=== PATIENT | female | born 1940 ===

== ENCOUNTER 2023-07-15 11:45 | Inpatient (IN) | payer MEDICARE, OTHER, SELFPAY ==
[2023-07-15] VITALS (30 sets, daily range): BP systolic 115–191; BP diastolic 46–81; PULSE 72–95; RESP 18–22; TEMP 36.8–37.6; O2SAT 92–100; BMI 26.6; BMI 27.4
--- NOTE | 2023-07-15 12:41 | CRLHL7_ITS ---
For Patients: As a result of the Century Cures Act, medical imaging exams and procedure reports are released immediately into your electronic medical record. You may view this report before your referring provider. If you have questions, please contact your health care provider. Indication: Diffuse acute abdominal Pain Technique: Volumetric multidetector CT images of the abdomen and pelvis were obtained after the administration of intravenous contrast. 61 cc Isovue 370 low osmolar intravenous contrast Comparison: None available. Findings: There is basilar atelectasis and parenchymal scar. The liver is normal in attenuation without intrahepatic biliary ductal dilatation. The portal vein is patent. There is prior cholecystectomy. There is no significant common biliary ductal dilatation or abrupt cut off. The spleen is normal in enhancement and size. There is mild thickening of the gastric antrum and gastric rugal folds with mild prominence of the mucosa. The pancreas is normal in enhancement without significant atrophy. The adrenal glands are unremarkable. The kidneys demonstrate preserved corticomedullary differentiation without evidence of obstructive uropathy. There is colonic diverticulosis with focal inflammatory change of the ascending colon consistent with likely low-grade diverticulitis changes. Additional questionable inflammation of sigmoid colon is appreciated. Otherwise the small bowel is predominantly decompressed with minimal fluid-filled distal loops. The appendix is unremarkable. There is no significant mesenteric, retroperitoneal, or pelvic sidewall lymph nodes. The aorta is not aneurysmal with scattered atherosclerotic calcifications. Cystic changes of the bilateral ovaries are appreciated. There is trace fluid seen within the dependent central pelvis. The anterior abdominal wall is intact without significant hernias. The lumbar vertebral body heights are grossly maintained with minimal endplate Schmorl`s defects. There is minimal anterolisthesis of L4 on L5. There is mild facet arthrosis. Impression: Colonic diverticulosis of the ascending and descending colon with focal inflammatory change of the ascending colon consistent with diverticulitis. Additional focal thickening and inflammatory changes of the sigmoid colon are appreciated which may represent additional site of infectious or inflammatory change. Minimal fluid is seen tracking into the pelvis and pericolic gutters. Please note that all CT scans at this facility use dose modulation, iterative reconstruction, and/or weight-based dosing when appropriate to reduce radiation dose to as low as reasonably achievable. Dictated by Kehinde Bush MD @ 07/15/2023 3:02:54 PM (Electronically Signed)
--- NOTE | 2023-07-15 12:41 | CRLHL7_ITS ---
For Patients: As a result of the Century Cures Act, medical imaging exams and procedure reports are released immediately into your electronic medical record. You may view this report before your referring provider. If you have questions, please contact your health care provider. INDICATION: Altered mental status TECHNIQUE: Noncontrast axial CT of the head. Coronal and sagittal reformats. Bone and soft tissue algorithms. COMPARISON: No relevant comparison studies available at this institution. FINDINGS: Postsurgical changes of remote right parietal craniotomy with subjacent right frontal encephalomalacia. Mild prominence of the ventricles and cortical sulci, compatible with generalized cerebral volume loss. No acute intracranial hemorrhage or abnormal extra-axial fluid collection. No midline shift, hydrocephalus, or herniation. Preserved quick-white matter differentiation. Mild expanded, partially empty-appearing sella configuration. Calcific intracranial atherosclerotic plaquing. Clear visualized paranasal sinuses. Left canal wall down mastoidectomy changes. Bilateral lens implants. IMPRESSION: 1. No CT evidence of acute intracranial abnormality. 2. Remote postsurgical changes of right parietal craniotomy with subjacent right frontal encephalomalacia. 3. Mild generalized cerebral volume loss. Left canal wall down mastoidectomy changes. Please note that all CT scans at this facility use dose modulation, iterative reconstruction, and/or weight-based dosing when appropriate to reduce radiation dose to as low as reasonably achievable. Dictated by Lexus Mathis MD @ 07/15/2023 2:33:45 PM (Electronically Signed)
[2023-07-15 13:21] LABS: HCO3 VBG 21 mmol/L (21-28); Lactate* 2.1 mmol/L (0.5-1.9); PCO2 VBG 30 mmHG (40-50); PO2 VBG 50.3 mmHG (25-47); pH VBG 7.445 (7.32-7.43)
[2023-07-15 13:22] LABS: Basophils Percent Auto 0.1 % (0.0-3.0); Eosinophils Percent Auto 0.2 % (0.0-7.0); Hematocrit 35.3 % (33.0-51.0); Hemoglobin* 11.4 gm/dL (12.0-16.0); Immature Granulocytes Pct Auto 0.6 %; Lymphocytes Percent Auto 10.7 % (20-44); Mean Corpuscular HGB Conc 32 gm/dL (32-36); Mean Corpuscular Hemoglobin 30 pg (26-34); Mean Corpuscular Volume 92 fL (80-100); Monocytes Percent Auto 5.4 % (0.0-11.0); Platelet Count* 214 K/uL (140-440); RDW Coefficient of Variation % 12.7 % (11.5-15.5); Red Blood Count 3.83 m/uL (4.00-5.20); White Blood Count* 11.48 K/uL (4.50-11.00)
[2023-07-15 13:26] LABS: Slide Review Reflex No
[2023-07-15 13:28] LABS: Troponin, Point-of-Care* 0.05 ng/ml (0.01-0.04)
[2023-07-15] MEDS: 0.9 % SODIUM CHLORIDE 500 ML 500 ML IV (13:35)
--- NOTE | 2023-07-15 13:40 | ED.GENADULT ---
HPI - General Adult General Chief complaint: Nausea/Vomiting Stated complaint: recent heart attack, vomiting, shivering Time Seen by Provider: 07/15/23 11:55 History of Present Illness HPI narrative: 82-year-old female presenting to the ER today with acute episode of vomiting and diarrhea. Patient had an appointment this morning with her registered sales assistant and per her daughter everything went very well at the appointment and patient was doing fine. Then on the way home she began feeling not well and vomited and had uncontrollable diarrhea. When the time patient arrived to our ER she had continuing episodes of vomiting and diarrhea. This all started 20 minutes prior to presentation. Now she is very weak and patient's daughter is quite concerned that she is not acting like herself. Patient was also shivering uncontrollably in the car. This has stopped. Past medical history significant for coronary artery disease status post stenting x2, hypertension. Current medications: Lisinopril, metoprolol, atorvastatin Related Data Allergies Allergy/AdvReac Type Severity Reaction Status Date / Time No Known Drug Allergies Allergy Verified 07/15/23 14:19 Review of Systems Status of ROS: Reports: 10 or more systems reviewed and unremarkable except as noted in History and below [facility] Social History Smoking Status: Never smoker Do you use any of these nicotine containing products: None How often do you have a drink containing alcohol: never How often do you have six or more drinks on one occasion: Never AUDIT-C Alcohol total score: 0 Non-prescribed substance use: denies use service: No Exam Narrative: Exam Narrative: Well-nourished well-developed patient in no acute distress. Patient is lying quietly in bed with her eyes closed. When I ask her to open them she does follow commands. She mainly nods or shakes her head in response to questions while keeping her eyes closed. She moans throughout most of the exam a and tells me that her all of her bones hurt. HEENT: Normocephalic atraumatic. Pupils are equally round reactive to light. Extraocular muscles are intact. Conjunctivae are moist without any icterus noted. Moist mucous membranes. Posterior pharynx is normal. Neck is soft without any lymphadenopathy or thyromegaly. No masses are appreciated. Cardiovascular: Heart is regular rate and rhythm S1 and S2 are present without any murmurs. Lungs: Clear to auscultation bilaterally no wheezes rhonchi or rales are appreciated. Patient takes deep breaths without any discomfort. Abdomen: Soft and nondistended. Patient groans in discomfort with light palpation over the entire abdomen. She does have hypoactive bowel sounds. Extremities: Bilateral lower extremities show trace edema bilaterally. Normal DP and PT pulses. Patient also groans in pain with light touch to all of the extremities. Skin: Well perfused without any obvious rashes. Patient lifts legs and upper extremities off of the bed when asked to but cannot sustain any strength in any extremity against force. Reflexes are 2+ symmetric at the knee. She has no nystagmus either horizontally or vertically. Const: Vital Signs, click to edit/add: Vital Signs - 24 hr 07/15/23 12:23 07/15/23 12:41 07/15/23 13:24 Pulse Rate 89 Pulse Rate [Pulse Oximeter] 92 Respiratory Rate 22 Blood Pressure Blood Pressure [Ri ght Upper Arm] 191/81 H Pulse Oximetry 92 92 92 Oxygen Delivery Me thod Room Air 07/15/23 13:30 07/15/23 13:32 07/15/23 13:45 Pulse Rate 86 86 86 Pulse Rate [Pulse Oximeter] Respiratory Rate Blood Pressure 136/57 L Blood Pressure [Ri ght Upper Arm] Pulse Oximetry 94 92 92 Oxygen Delivery Me thod 07/15/23 14:09 07/15/23 14:15 07/15/23 14:30 Pulse Rate 85 85 83 Pulse Rate [Pulse Oximeter] Respiratory Rate Blood Pressure Blood Pressure [Ri ght Upper Arm] Pulse Oximetry 99 97 Oxygen Delivery Me thod 07/15/23 14:31 07/15/23 14:32 07/15/23 14:45 Pulse Rate 84 83 84 Pulse Rate [Pulse Oximeter] Respiratory Rate Blood Pressure 137/52 L Blood Pressure [Ri ght Upper Arm] Pulse Oximetry 99 98 98 Oxygen Delivery Me thod 07/15/23 15:00 07/15/23 15:05 07/15/23 15:15 Pulse Rate 84 83 85 Pulse Rate [Pulse Oximeter] Respiratory Rate Blood Pressure Blood Pressure [Ri ght Upper Arm] Pulse Oximetry 100 100 99 Oxygen Delivery Me thod 07/15/23 15:30 07/15/23 15:34 07/15/23 15:45 Pulse Rate 87 84 85 Pulse Rate [Pulse Oximeter] Respiratory Rate Blood Pressure Blood Pressure [Ri ght Upper Arm] Pulse Oximetry 93 95 94 Oxygen Delivery Me thod 07/15/23 16:00 07/15/23 16:05 Pulse Rate 95 93 Pulse Rate [Pulse Oximeter] Respiratory Rate Blood Pressure Blood Pressure [Ri ght Upper Arm] Pulse Oximetry 93 95 Oxygen Delivery Me thod Course Course ED Course: Per the patient's daughter this is not her baseline behavior. She is generally up, awake and independent. IV was established and we did start 500 mL of normal saline. Labs were drawn. CRP, lactate and WBC all just above normal. Given her acute change in mentation we did do a head CT which was unremarkable for any acute changes. Given her abdominal discomfort we did proceed with an abdominal CT scan which did show evidence of diverticulitis. After fluids and resting for a couple of hours patient felt significantly better perked right up. She was back to her normal self. She was sitting in bed but having conversations, was awake and alert. At this time we did repeat an EKG which shows some mild changes in leads 2 3 and AVF and a repeat troponin unfortunately went up significantly to 0.1. At this time I did call Dr. Valero, registered sales assistant at [facility] who saw the patient this morning. He felt that the EKG changes between the 1st and 2nd EKGs were not significant. He recommended admission with observation of and trending of the troponins. We discussed treating for acute coronary syndrome with heparin but given that she is completely asymptomatic, we decided against it at this time. Vital Signs Vital signs: Initial Vital Signs Temperature Source Temporal Artery Scan 07/15/23 12:23 Pulse Rate 92 07/15/23 12:23 Pulse Rhythm Regular 07/15/23 12:23 Respiratory Rate 22 07/15/23 12:23 Blood Pressure 191/81 H 07/15/23 12:23 Blood Pressure Mean 117 H 07/15/23 12:23 Blood Pressure Position Supine 07/15/23 12:23 Pulse Oximetry 92 07/15/23 12:23 Oxygen Delivery Method Room Air 07/15/23 12:23 Vital Signs Pulse Rate 92 07/15/23 12:23 Respiratory Rate 22 07/15/23 12:23 Blood Pressure 191/81 H 07/15/23 12:23 Pulse Oximetry 92 07/15/23 12:23 Oxygen Delivery Method Room Air 07/15/23 12:23 Pulse Rate 93 07/15/23 16:05 Respiratory Rate 22 07/15/23 12:23 Blood Pressure 137/52 L 07/15/23 14:31 Pulse Oximetry 95 07/15/23 16:05 Oxygen Delivery Method Room Air 07/15/23 12:23 Medical Decision Making MDM Narrative Medical decision making narrative: 82-year-old female with diverticulitis and elevated troponin. Given her comorbidities and age I do think that antibiotic treatment would be appropriate for her. At this time she will be admitted for further management. P Medical Records Medical records reviewed: Yes I reviewed the patient's medical records Lab Data Lab results reviewed: Yes I reviewed the patient's lab results Labs: Lab Results 07/15/23 07/15/23 07/15/23 Range/Units 12:42 13:10 13:45 WBC 11.48 H (4.50-11.00) K/uL RBC 3.83 L (4.00-5.20) m/uL Hgb 11.4 L (12.0-16.0) gm/dL Hct 35.3 (33.0-51.0) % MCV 92 (80-100) fL MCH 30 (26-34) pg MCHC 32 (32-36) gm/dL RDW Coeff of [place]ckin[place] 12.7 (11.5-15.5) % Plt Count 214 (140-440) K/uL Neut % (Auto) 83.0 H (42.0-72.0) % Lymph % (Auto) 10.7 L (20-44) % [place] % (Auto) 5.4 (0.0-11.0) % Eos % (Auto) 0.2 (0.0-7.0) % Baso % (Auto) 0.1 (0.0-3.0) % Neut # (Auto) 9.50 H (1.7-7.0) K/uL Lymph # (Auto) 1.20 (0.90-2.90) K/uL [place] # (Auto) 0.60 (0.00-0.90) K/UL Eos # (Auto) 0.00 (0.00-0.50) K/uL Baso # (Auto) 0.00 (0.00-0.30) K/uL Abs Immat Gran (auto) 0.10 (0.00-0.30) K/uL Imm/Tot Granulo (auto) 0.6 % VBG pH 7.445 H (7.32-7.43) VBG pCO2 30 L (40-50) mmHG VBG pO2 50.3 H (25-47) mmHG VBG HCO3 21 (21-28) mmol/L Sodium 140 (135-149) mmol/L Potassium 3.7 (3.6-5.1) mmol/L Chloride 105 (96-114) mmol/L Carbon Dioxide 18 L (20-32) mmol/L Anion Gap 17 H (7-15) mEq/L BUN 17 (7-30) mg/dL Creatinine 1.1 (0.5-1.5) mg/dL Estimated Creat Clear 34.13 Estimated GFR 50 ml/min Glucose 87 (60-115) mg/dL Lactate 2.1 H (0.5-1.9) mmol/L Calcium 9.1 (8.4-10.6) mg/dL Total Bilirubin 0.7 (0.1-1.5) mg/dL Direct Bilirubin 0.1 (0.0-0.5) mg/dL AST 40 H (12-35) U/L ALT 17 (4-35) U/L Alkaline Phosphatase 106 (40-150) U/L Troponin I 0.02 (0.01-0.04) ng/mL C-Reactive Protein 0.9 (0.5-1.0) mg/dL NT-Pro-B Natriuret Pep 1030 pg/mL Total Protein 6.5 (6.0-8.3) g/dL Albumin 3.9 (3.3-5.0) g/dL Lipase (23-300) U/L Urine Color (Yellow) Urine Appearance (Clear) Urine pH (5.0-8.5) Ur Specific [place] (1.000-1.030) Urine Protein (Negative) Urine Glucose (UA) (Negative) Urine Ketones (Negative) Urine Blood (Negative) Urine Nitrite (Negative) Urine Bilirubin (Negative) Urine Urobilinogen (0.2-1.0) Ur Leukocyte Esterase (Negative) Acetaminophen < 10.0 L (10.0-30.0) ug/mL Ethyl Alcohol < 0.01 L (0.01-0.03) % SARS-CoV-2 (PCR) Negative SARS-CoV-2 (Negative) Influenza Type A (PCR) Negative PCR FLU A (Negative) Influenza Type B (PCR) Negative PCR FLU B (Negative) POC Troponin I 0.05 H (0.01-0.04) ng/ml 07/15/23 07/15/23 Range/Units 14:57 Unknown WBC (4.50-11.00) K/uL RBC (4.00-5.20) m/uL Hgb (12.0-16.0) gm/dL Hct (33.0-51.0) % MCV (80-100) fL MCH (26-34) pg MCHC (32-36) gm/dL RDW Coeff of Mckin[place] (11.5-15.5) % Plt Count (140-440) K/uL Neut % (Auto) (42.0-72.0) % Lymph % (Auto) (20-44) % [place] % (Auto) (0.0-11.0) % Eos % (Auto) (0.0-7.0) % Baso % (Auto) (0.0-3.0) % Neut # (Auto) (1.7-7.0) K/uL Lymph # (Auto) (0.90-2.90) K/uL [place] # (Auto) (0.00-0.90) K/UL Eos # (Auto) (0.00-0.50) K/uL Baso # (Auto) (0.00-0.30) K/uL Abs Immat Gran (auto) (0.00-0.30) K/uL Imm/Tot Granulo (auto) % VBG pH (7.32-7.43) VBG pCO2 (40-50) mmHG VBG pO2 (25-47) mmHG VBG HCO3 (21-28) mmol/L Sodium (135-149) mmol/L Potassium (3.6-5.1) mmol/L Chloride (96-114) mmol/L Carbon Dioxide (20-32) mmol/L Anion Gap (7-15) mEq/L BUN (7-30) mg/dL Creatinine (0.5-1.5) mg/dL Estimated Creat Clear Estimated GFR ml/min Glucose (60-115) mg/dL Lactate (0.5-1.9) mmol/L Calcium (8.4-10.6) mg/dL Total Bilirubin (0.1-1.5) mg/dL Direct Bilirubin (0.0-0.5) mg/dL AST (12-35) U/L ALT (4-35) U/L Alkaline Phosphatase (40-150) U/L Troponin I 0.10 H* (0.01-0.04) ng/mL C-Reactive Protein (0.5-1.0) mg/dL NT-Pro-B Natriuret Pep pg/mL Total Protein (6.0-8.3) g/dL Albumin (3.3-5.0) g/dL Lipase 172 (23-300) U/L Urine Color Yellow (Yellow) Urine Appearance Clear (Clear) Urine pH 5.0 (5.0-8.5) Ur Specific [place] 1.015 (1.000-1.030) Urine Protein 1+ A (Negative) Urine Glucose (UA) Negative (Negative) Urine Ketones Negative (Negative) Urine Blood 2+ A (Negative) Urine Nitrite Positive A (Negative) Urine Bilirubin Negative (Negative) Urine Urobilinogen 0.2 (0.2-1.0) Ur Leukocyte Esterase 1+ A (Negative) Acetaminophen (10.0-30.0) ug/mL Ethyl Alcohol (0.01-0.03) % SARS-CoV-2 (PCR) (Negative) Influenza Type A (PCR) (Negative) Influenza Type B (PCR) (Negative) POC Troponin I (0.01-0.04) ng/ml Imaging Data CT scan - head: Attestation: I have reviewed the pertinent imaging results. Radiologist's impression: TECHNIQUE: Noncontrast axial CT of the head. Coronal and sagittal reformats. Bone and soft tissue algorithms. COMPARISON: No relevant comparison studies available at this institution. FINDINGS: Postsurgical changes of remote right parietal craniotomy with subjacent right frontal encephalomalacia. Mild prominence of the ventricles and cortical sulci, compatible with generalized cerebral volume loss. No acute intracranial hemorrhage or abnormal extra-axial fluid collection. No midline shift, hydrocephalus, or herniation. Preserved quick-white matter differentiation. Mild expanded, partially empty-appearing sella configuration. Calcific intracranial atherosclerotic plaquing. Clear visualized paranasal sinuses. Left canal wall down mastoidectomy changes. Bilateral lens implants. IMPRESSION: 1. No CT evidence of acute intracranial abnormality. 2. Remote postsurgical changes of right parietal craniotomy with subjacent right frontal encephalomalacia. 3. Mild generalized cerebral volume loss. Left canal wall down mastoidectomy changes. CT scan - abdomen: Attestation: I have reviewed the pertinent imaging results. Radiologist's impression: Technique: Volumetric multidetector CT images of the abdomen and pelvis were obtained after the administration of intravenous contrast. 61 cc Isovue 370 low osmolar intravenous contrast Comparison: None available. Findings: There is basilar atelectasis and parenchymal scar. The liver is normal in attenuation without intrahepatic biliary ductal dilatation. The portal vein is patent. There is prior cholecystectomy. There is no significant common biliary ductal dilatation or abrupt cut off. The spleen is normal in enhancement and size. There is mild thickening of the gastric antrum and gastric rugal folds with mild prominence of the mucosa. The pancreas is normal in enhancement without significant atrophy. The adrenal glands are unremarkable. The kidneys demonstrate preserved corticomedullary differentiation without evidence of obstructive uropathy. There is colonic diverticulosis with focal inflammatory change of the ascending colon consistent with likely low-grade diverticulitis changes. Additional questionable inflammation of sigmoid colon is appreciated. Otherwise the small bowel is predominantly decompressed with minimal fluid-filled distal loops. The appendix is unremarkable. There is no significant mesenteric, retroperitoneal, or pelvic sidewall lymph nodes. The aorta is not aneurysmal with scattered atherosclerotic calcifications. Cystic changes of the bilateral ovaries are appreciated. There is trace fluid seen within the dependent central pelvis. The anterior abdominal wall is intact without significant hernias. The lumbar vertebral body heights are grossly maintained with minimal endplate Schmorl`s defects. There is minimal anterolisthesis of L4 on L5. There is mild facet arthrosis. Impression: Colonic diverticulosis of the ascending and descending colon with focal inflammatory change of the ascending colon consistent with diverticulitis. Additional focal thickening and inflammatory changes of the sigmoid colon are appreciated which may represent additional site of infectious or inflammatory change. Minimal fluid is seen tracking into the pelvis and pericolic gutters. ECG Data Attestation: I personally reviewed and interpreted this ECG as follows: Discharge Plan Discharge Clinical Impression: Diverticulitis, Elevated troponin Patient Disposition: Admitted As Observation Condition: Stable Additional Instructions: Take all antibiotics as prescribed. May want to try just a liquid diet for the remainder of the day to help with reduce chance of vomiting and worsening pain. Can slowly advance diet as tolerated. Return to the ER symptoms are getting worse over the next 2-3 days instead of better. Follow-up with primary care provider in 10-14 days. Medications sent to [facility]. Follow Up/Referrals: Renetta Dunn MD [Primary Care Provider] - Stand Alone Forms: [facility] Info Instructions
[2023-07-15 13:42] LABS: Chloride* 105 mmol/L (96-114); Potassium* 3.7 mmol/L (3.6-5.1); Sodium* 140 mmol/L (135-149)
[2023-07-15 13:43] LABS: Albumin* 3.9 g/dL (3.3-5.0)
[2023-07-15 13:44] LABS: Creatinine* 1.1 mg/dL (0.5-1.5); Est. Creatinine Clearance* 34.13; Estimated Glomerular Filt Rate 50 ml/min
[2023-07-15 13:45] LABS: Anion Gap 17 mEq/L (7-15); Blood Urea Nitrogen* 17 mg/dL (7-30); Carbon Dioxide* 18 mmol/L (20-32); Glucose* 87 mg/dL (60-115)
[2023-07-15 13:46] LABS: Alanine Aminotransferase* 17 U/L (4-35); Alkaline Phosphatase* 106 U/L (40-150); Aspartate Amino Transferase* 40 U/L (12-35); Bilirubin Direct* 0.1 mg/dL (0.0-0.5); Bilirubin Total* 0.7 mg/dL (0.1-1.5); Calcium* 9.1 mg/dL (8.4-10.6); Total Protein* 6.5 g/dL (6.0-8.3)
[2023-07-15 13:48] LABS: C Reactive Protein* 0.9 mg/dL (0.5-1.0)
[2023-07-15 13:57] LABS: Troponin I* 0.02 ng/mL (0.01-0.04)
[2023-07-15 14:02] LABS: Acetaminophen* < 10.0 ug/mL (10.0-30.0); Ethanol* < 0.01 % (0.01-0.03); NT Pro B Type NatriureticPept* 1030 pg/mL
[2023-07-15 14:41] LABS: PCR FLU A Negative PCR FLU A (Negative); PCR FLU B Negative PCR FLU B (Negative)
[2023-07-15 14:54] LABS: SARS PCR* Negative SARS-CoV-2 (Negative)
[2023-07-15 15:19] LABS: Lipase* 172 U/L (23-300)
[2023-07-15 15:40] LABS: Appearance Urine Clear (Clear); Bilirubin Urine Negative (Negative); Blood Urine 2+ (Negative); Color Urine Yellow (Yellow); Glucose Urine Negative (Negative); Ketones Urine Negative (Negative); Leukocyte Esterase Urine 1+ (Negative); Nitrite Urine Positive (Negative); Protein Urine 1+ (Negative); Specific Gravity Urine 1.015 (1.000-1.030); Urobilinogen Urine 0.2 (0.2-1.0)
--- NOTE | 2023-07-15 15:43 | ED.NURSE ---
critical troponin of .10, MD notified.
--- NOTE | 2023-07-15 16:36 | ED.NURSE ---
report given off to kade ALCANTAR.
[2023-07-15 16:48] LABS: Bacteria Urine Few; Squamous Epithelial Cell Urine Few (None-Few)
[2023-07-15] MEDS: PIPERACILLIN/TAZOBACTAM 3.375 GM in 0.9 % SODIUM CHLORIDE Mini-bag 100 ML IVPB ×2 (18:28→23:32)
--- NOTE | 2023-07-15 18:31 | P.IMHP_ITS ---
Hospitalist- H&P: HPI History of Present Illness Date Seen: 07/15/23 Chief complaint: recent heart attack, vomiting, shivering Narrative: Liliana Parker is a 82 year old female who presented to the emergency room this afternoon with her daughter for acute onset of nausea, vomiting, and diarrhea. She was seen by her labeling associate for routine follow-up this morning (s/p recent NSTEMI with stent placement 06/05) with reassuring labs and EKG findings. On the way home from the appointment, she noted abdominal distress with diarrhea and some vomiting. These symptoms improved upon arrival to the ED, but then felt weak and was shivering upon ED arrival. ED Course and Findings: - diverticulitis on CT scan, received IV fluids for GI symptoms with relief - + UA, culture pending - stable on room air - no acute findings on head CT, chronic changes noted - initial troponin negative, 2nd troponin 0.10 - EKG revealed concern for a left bundle branch block - patient did not have chest pain or dyspnea. Dr. Pinzon in the emergency room discussed case with [facility], who recommended serial troponins, telemetry monitoring, TTE Upon arrival to the floor, patient is feeling better. Still has mild abdominal discomfort but no other concerns. Past medical history updated below. Daughter Dana present for H&P. Review of Systems Status of ROS: Reports: 10 or more systems reviewed and unremarkable except as noted in History and below [facility] Medical History (Updated 07/15/23 @ 20:11 by Arely Villa MD) Former smoker ?Z87.891 - Personal history of nicotine dependence (ICD-10) CKD (chronic kidney disease) ?N18.9 - Chronic kidney disease, unspecified (ICD-10) BPPV (benign paroxysmal positional vertigo) ?H81.10 - Benign paroxysmal vertigo, unspecified ear (ICD-10) Coronary artery disease ?I25.10 - Atherosclerotic heart disease of citizen [place] coronary artery without angina pectoris (ICD-10) Essential hypertension ?I10 - Essential (primary) hypertension (ICD-10) GERD (gastroesophageal reflux disease) ?K21.9 - Gastro-esophageal reflux disease without esophagitis (ICD-10) Surgical History (Updated 07/15/23 @ 20:02 by Arely Villa MD) H/O craniotomy ?Z98.890 - Other specified postprocedural states (ICD-10) History of coronary artery stent placement ?Z95.5 - Presence of coronary angioplasty implant and graft (ICD-10) Social History (Updated 07/15/23 @ 20:02 by Arely Villa MD) Narrative: Patient lives in [place], but since her NSTEMI in May, she has been living with her daughter in [place] for cardiac rehab. She had 8 children, 6 living. Daughter Dana would be medical decision maker if needed. She smoked remotely, no alcohol use. Full code. What is your current living situation?: I presently have a place to live Problems where you live: unable to answer Problems where you live details: N/A In the past 12 months, utilities in danger of being shut off: unable to answer In past 12 months, lack of transportation kept you from medical appts, meetings, work, or getting things needed for daily living: no In the past 12 mos, have been you worried that your food would run out before you had money to buy more?: unable to answer In the past 12 mos, the food you bought just didn't last and you didn't have money to buy more?: unable to answer Highest level of school completed/degree received: never attended/kindergarten only Smoking Status: Former smoker Do you use any of these nicotine containing products: None How often do you have a drink containing alcohol: never How often do you have six or more drinks on one occasion: Never AUDIT-C Alcohol total score: 0 Non-prescribed substance use: denies use Caffeine: Yes (1 cup coffee daily) How often does anyone, including family, friends and others, physically hurt you : unable to answer How often does anyone, including family, friends and others, insult or talk down to you: unable to answer How often does anyone, including family, friends and others, threaten you with harm: unable to answer How often does anyone, including family, friends and others, scream or curse at you: unable to answer service: No Meds Home Medications and Allergies Home Medications Medication Instructions Recorded Confirmed Type aspirin 81 mg tablet,delayed 81 mg PO DAILY 07/15/23 07/15/23 History release (Robert Low Dose Aspirin) atorvastatin 80 mg tablet 80 mg PO HS 07/15/23 07/15/23 History clopidogrel 75 mg tablet 75 mg PO DAILY 07/15/23 07/15/23 History lisinopril 40 mg tablet 40 mg PO DAILY 07/15/23 07/15/23 History metoprolol tartrate 25 mg tablet 25 mg PO BID 07/15/23 07/15/23 History pantoprazole 40 mg tablet,delayed 40 mg PO DAILY 07/15/23 07/15/23 History release Allergies Allergy/AdvReac Type Severity Reaction Status Date / Time No Known Drug Allergies Allergy Verified 07/15/23 14:19 Exam Narrative: Exam Narrative: GEN: Alert and laying comfortably in bed, nontoxic HEENT: EOMIs bilaterally, no scleral icterus CV: RRR, soft systolic murmur without concerning features R: LCTA bilaterally without concerning wheezing, air movement adequate Ext: wwp, trace edema bilateral lower extremities Skin: No concerning skin lesions or rashes on exposed skin Neuro: No focal deficits, no resting tremor, gait not observed Psych: Appropriate Const: Vital Signs, click to edit/add: Vital Signs - 24 hr 07/15/23 12:23 07/15/23 12:41 07/15/23 13:24 Temperature Pulse Rate 89 Pulse Rate [Left R adial] Pulse Rate [Pulse Oximeter] 92 Respiratory Rate 22 Blood Pressure Blood Pressure [Ri ght Arm] Blood Pressure [Ri ght Upper Arm] 191/81 H Pulse Oximetry 92 92 [facility] 07/15/23 13:30 07/15/23 13:32 07/15/23 13:45 Temperature Pulse Rate 86 86 86 Pulse Rate [Left R adial] Pulse Rate [Pulse Oximeter] Respiratory Rate Blood Pressure 136/57 L Blood Pressure [Ri ght Arm] Blood Pressure [Ri ght Upper Arm] Pulse Oximetry 94 92 92 Oxygen Delivery Me thod 07/15/23 14:09 07/15/23 14:15 07/15/23 14:30 Temperature Pulse Rate 85 85 83 Pulse Rate [Left R adial] Pulse Rate [Pulse Oximeter] Respiratory Rate Blood Pressure Blood Pressure [Ri ght Arm] Blood Pressure [Ri ght Upper Arm] Pulse Oximetry 99 97 Oxygen Delivery Me thod 07/15/23 14:31 07/15/23 14:32 07/15/23 14:45 Temperature Pulse Rate 84 83 84 Pulse Rate [Left R adial] Pulse Rate [Pulse Oximeter] Respiratory Rate Blood Pressure 137/52 L Blood Pressure [Ri ght Arm] Blood Pressure [Ri ght Upper Arm] Pulse Oximetry 99 98 98 Oxygen Delivery Me thod 07/15/23 15:00 07/15/23 15:05 07/15/23 15:15 Temperature Pulse Rate 84 83 85 Pulse Rate [Left R adial] Pulse Rate [Pulse Oximeter] Respiratory Rate Blood Pressure Blood Pressure [Ri ght Arm] Blood Pressure [Ri ght Upper Arm] Pulse Oximetry 100 100 99 Oxygen Delivery Me thod 07/15/23 15:30 07/15/23 15:34 07/15/23 15:45 Temperature Pulse Rate 87 84 85 Pulse Rate [Left R adial] Pulse Rate [Pulse Oximeter] Respiratory Rate Blood Pressure Blood Pressure [Ri ght Arm] Blood Pressure [Ri ght Upper Arm] Pulse Oximetry 93 95 94 Oxygen Delivery Dc thod 07/15/23 16:00 07/15/23 16:05 07/15/23 16:06 Temperature Pulse Rate 95 93 93 Pulse Rate [Left R adial] Pulse Rate [Pulse Oximeter] Respiratory Rate Blood Pressure Blood Pressure [Ri ght Arm] Blood Pressure [Ri ght Upper Arm] Pulse Oximetry 93 95 94 Oxygen Delivery Me thod 07/15/23 16:15 07/15/23 16:30 07/15/23 16:31 Temperature Pulse Rate 87 90 88 Pulse Rate [Left R adial] Pulse Rate [Pulse Oximeter] Respiratory Rate Blood Pressure 155/67 H Blood Pressure [Ri ght Arm] Blood Pressure [Ri ght Upper Arm] Pulse Oximetry 95 94 93 Oxygen Delivery Dc thod 07/15/23 16:45 07/15/23 16:55 Temperature 99.6 F Pulse Rate 90 Pulse Rate [Left R adial] 89 Pulse Rate [Pulse Oximeter] Respiratory Rate 18 Blood Pressure Blood Pressure [Ri ght Arm] 153/64 H Blood Pressure [Ri ght Upper Arm] Pulse Oximetry 94 94 Oxygen Delivery Me od Room Air Hospitalist - H&P: Result Labs Labs: Short CBC 07/15/23 Range/Units 13:10 WBC 11.48 H (4.50-11.00) K/uL Hgb 11.4 L (12.0-16.0) gm/dL Hct 35.3 (33.0-51.0) % Plt Count 214 (140-440) K/uL BMP 07/15/23 13:10 Sodium 140 Potassium 3.7 Chloride 105 Carbon Dioxide 18 L BUN 17 Creatinine 1.1 Glucose 87 Calcium 9.1 Cardiac Enzymes 07/15/23 07/15/23 Range/Units 13:10 14:57 Troponin I 0.02 0.10 H* (0.01-0.04) ng/mL Liver Function 07/15/23 Range/Units 13:10 Total Bilirubin 0.7 (0.1-1.5) mg/dL Direct Bilirubin 0.1 (0.0-0.5) mg/dL AST 40 H (12-35) U/L ALT 17 (4-35) U/L Alkaline Phosphatase 106 (40-150) U/L Albumin 3.9 (3.3-5.0) g/dL Urine 07/15/23 Range/Units Unknown Urine Color Yellow (Yellow) Urine Appearance Clear (Clear) Urine pH 5.0 (5.0-8.5) Ur Specific [place] 1.015 (1.000-1.030) Urine Protein 1+ A (Negative) Urine Glucose (UA) Negative (Negative) Assessment and Plan Assessment and plan (1) Diverticulitis: Problem comment: - noted on CT 07/15 - will treat with Zosyn, advance po intake as tolerated Status: Acute (2) Elevated troponin: Problem comment: - asymptomatic - likely demand ischemia from acute illness - follow to [facility] - Cardiology aware: recommends monitoring, serial troponins, TTE on 07/16 Status: Acute (3) Abnormal urinalysis: Problem comment: - culture pending, on Zosyn (07/15) Status: Acute Plan - per above - ASA, Plavix, SCDs, ambulation for ppx - daughter updated at bedside, questions answered
[2023-07-15] MEDS: 0.9 % SODIUM CHLORIDE 250 ml IV (18:34)
--- NOTE | 2023-07-15 19:34 | PC.NURSE ---
Pt arrived to unit from ED at approximately 1655. Pt had a cardiology appointment today and had vomiting on way home from appointment. She was also noted to have episode of diarrhea this morning. Daughter reports pt normally does not have incontinence. Pt has been denying pain when asked. LS noted to be clear to all lobes bilaterally and bowel sounds active x 4. Patient has refused bathroom when offered since arrival to unit though can reposition independently in bed. Temp of 99.6 noted upon arrival to unit. MD Villa met with patient and her family shortly after arrival to unit. Pt is fluent in Scottish though does understand some Hungarian per daughter Dana. Pt has NKA and is currently being treated for diverticulitis. She has had no N/V or c/o CP since arrival to unit and states she feels better this evening when asked. Pt unable to sign her name though is able to write x for signature line. Signatures required verified with two RNs. Pt has refused supper when encouraged though has had 200 mL water po since arrival to unit. Pt noted to have nonpitting edema to BLEs which daughter reports is a new finding. IV to L AC SL at this time as pt has received first dose of IV Zosyn. Pt is a former smoker though quit when she was 16 and never attended school. Daughter Dana reports she (Dana) will be having surgery tomorrow though pt's granddaughter's phone number is also available for staff to call if needed. Pt lives at home with daughter Dana after recovery from recent ME before this admission.
[2023-07-15 19:51] LABS: Troponin I* 0.19 ng/mL (0.01-0.04)
[2023-07-15] MEDS: METOPROLOL TARTRATE 25 MG TABLET PO (21:32)
[2023-07-15] MEDS: ATORVASTATIN CALCIUM 40 MG TABLET 80 MG PO (21:32)
[2023-07-15] MEDS: PANTOPRAZOLE SODIUM 40 MG INJ IVP (21:33)
[2023-07-15] MEDS: SODIUM CHLORIDE 0.9 % (FLUSH) 10 ML SYRINGE 5 ML IVF ×2 (21:33→23:32)
[2023-07-16] VITALS (10 sets, daily range): BP systolic 105–131; BP diastolic 45–54; PULSE 64–87; RESP 22–28; TEMP 36.6–38.4; O2SAT 93–100
[2023-07-16 01:23] LABS: Troponin I* 0.19 ng/mL (0.01-0.04)
[2023-07-16] MEDS: PIPERACILLIN/TAZOBACTAM 3.375 GM in 0.9 % SODIUM CHLORIDE Mini-bag 100 ML IVPB ×4 (05:19→23:54)
[2023-07-16 06:22] LABS: Basophils Percent Auto 0.1 % (0.0-3.0); Hematocrit 29.4 % (33.0-51.0); Hemoglobin* 9.5 gm/dL (12.0-16.0); Immature Granulocytes Pct Auto 1.2 %; Lymphocytes Percent Auto 9.1 % (20-44); Mean Corpuscular HGB Conc 32 gm/dL (32-36); Mean Corpuscular Hemoglobin 30 pg (26-34); Mean Corpuscular Volume 92 fL (80-100); Neutrophils Percent Auto 83.6 % (42.0-72.0); Platelet Count* 184 K/uL (140-440); RDW Coefficient of Variation % 13.3 % (11.5-15.5)
[2023-07-16 06:37] LABS: Albumin* 3.1 g/dL (3.3-5.0); Chloride* 105 mmol/L (96-114)
[2023-07-16 06:38] LABS: Potassium* 3.1 mmol/L (3.6-5.1); Sodium* 139 mmol/L (135-149)
[2023-07-16 06:40] LABS: Creatinine* 1.2 mg/dL (0.5-1.5); Est. Creatinine Clearance* 31.18; Estimated Glomerular Filt Rate 45 ml/min
[2023-07-16 06:41] LABS: Alanine Aminotransferase* 15 U/L (4-35); Alkaline Phosphatase* 62 U/L (40-150); Anion Gap 14 mEq/L (7-15); Aspartate Amino Transferase* 34 U/L (12-35); Bilirubin Total* 1.5 mg/dL (0.1-1.5); Blood Urea Nitrogen* 18 mg/dL (7-30); Calcium* 8.1 mg/dL (8.4-10.6); Carbon Dioxide* 20 mmol/L (20-32); Glucose* 83 mg/dL (60-115); Total Protein* 5.7 g/dL (6.0-8.3)
[2023-07-16 06:44] LABS: C Reactive Protein* 7.7 mg/dL (0.5-1.0)
[2023-07-16 07:03] LABS: Slide Review Reflex No
[2023-07-16 07:16] LABS: Troponin I* 0.13 ng/mL (0.01-0.04)
--- NOTE | 2023-07-16 07:23 | PC.NURSE ---
END OF SHIFT NOTE: BURUNDIAN SPEAKING PT, WHO IS PLEASANT AND COOPERATIVE. A&Ox3. DENIES CP, SOB, N/V. HAS NOT AMBULATED THIS SHIFT. VSS ON RA; AFEBRILE. TELE READS NSR WITH 1ST DEGREE HB. PT?S DTG CALLED @9230 FOR UPDATE. INCONTINENT OF URINE x1. BED ALARM ON AND CALL LIGHT WITHIN PT?S REACH.
[2023-07-16] MEDS: POTASSIUM CHLORIDE 10 MEQ CAPSULE ER 20 MEQ PO ×2 (08:24→17:33)
[2023-07-16] MEDS: 0.9 % SODIUM CHLORIDE 1000 ml 1,000 ML 125 ML IV (08:24)
[2023-07-16 08:30] LABS: Lactate* 0.8 mmol/L (0.5-1.9)
[2023-07-16] MEDS: ASPIRIN 81 MG TABLET EC PO (08:57)
[2023-07-16] MEDS: lisinopriL 20 MG TABLET 40 MG PO (08:57)
[2023-07-16] MEDS: METOPROLOL TARTRATE 25 MG TABLET PO (08:57)
[2023-07-16] MEDS: PANTOPRAZOLE SODIUM 40 MG INJ IVP (08:57)
[2023-07-16] MEDS: CLOPIDOGREL 75 MG TABLET PO (08:57)
[2023-07-16] MEDS: SODIUM CHLORIDE 0.9 % (FLUSH) 10 ML SYRINGE 5 ML IVF ×2 (08:58→23:54)
--- NOTE | 2023-07-16 11:33 | P.IMPN_ITS ---
Progress Note: A&P Assessment and plan (1) Diverticulitis: Problem details: - noted on CT 07/15, leukocytosis trending up, lactate improved to 0.8, BC x2 pending, remains afebrile, symptomatically improving - continue Zosyn, IVF - tolerating regular diet without nausea vomiting or worsening pain - plan to transition to oral antibiotics with ongoing symptomatic and diagnostic improvement - recheck CBC in a.m. Status: Acute (2) Abnormal urinalysis: Problem details: - culture pending, on Zosyn (07/15) Status: Acute (3) Elevated troponin: Problem details: - asymptomatic, was seen by [place] [facility] [employer] [facility] in the clinic on day of admission - likely demand ischemia from acute illness - follow to [facility], 0.19 at midnight, 0.13 this morning (07/16) - [facility] aware: recommends monitoring, serial troponins, TTE scheduled for 07/16 Status: Acute (4) Hypokalemia: Problem details: - potassium 3.1 - oral replacement with KCl 20 mEq b.i.d. x4 doses, continue to monitor Status: Acute (5) CKD (chronic kidney disease): Problem details: - creatinine 1.2, avoid nephrotoxic medications, continue to monitor Status: Acute (6) Essential hypertension: Problem details: - continue lisinopril and metoprolol, aspirin, monitoring - statin for hyperlipidemia comorbidity Status: Acute Plan Possible discharge in 1-2 days, trending WBC, pending clinical improvement with plan to discharge on oral antibiotics Time Spent With Patient Total time spent: Total time spent caring for the patient today was 45 minutes. This includes time spent for the visit reviewing the chart, time spent during the visit, time spent after the visit and documentation and planning in coordination of care. Subjective Date Seen: 07/16/23 Interval history: Patient is a pleasant, [place]-speaking only, woman seen with full time staff interpreter at bedside this morning. Reports feeling much better this morning. Continues to have a little bit of abdominal pain. Had a large soft bowel movement this morning which she tells me helped her pain. Is eating breakfast without nausea or vomiting. Has remained afebrile. Denies chest pain or shortness of breath. Has no concerns or complaints this morning. Exam Narrative: Exam Narrative: PHYSICAL EXAM General: Sitting up in bed, very pleasant, NAD HEENT: Normocephalic, atraumatic, sclera white, EOMI, oral mucosa moist Cardiovascular: RRR, S1S2. No pitting edema Pulmonary: CTA bilaterally without rhonchi, rales, expiratory wheezes. No dyspnea Abdominal: Mildly distended, mild diffuse tenderness, no guarding Neurological: Alert, answering questions appropriately, cranial nerves intact, no focal findings Extremities: No gross joint deformity or swelling. AROMI. Neurovascularly intact Skin: Warm, dry. Const: Vital Signs, click to edit/add: Vital Signs - 24 hr 07/15/23 12:23 07/15/23 12:41 07/15/23 13:24 Temperature Pulse Rate 89 Pulse Rate [Left R adial] Pulse Rate [Pulse Oximeter] 92 Respiratory Rate 22 Blood Pressure Blood Pressure [Ri ght Arm] Blood Pressure [Ri ght Upper Arm] 191/81 H Pulse Oximetry 92 92 92 Oxygen Delivery Me od Room Air 07/15/23 13:30 07/15/23 13:32 07/15/23 13:45 Temperature Pulse Rate 86 86 86 Pulse Rate [Left R adial] Pulse Rate [Pulse Oximeter] Respiratory Rate Blood Pressure 136/57 L Blood Pressure [Ri ght Arm] Blood Pressure [Ri ght Upper Arm] Pulse Oximetry 94 92 92 Oxygen Delivery Me thod 07/15/23 14:09 07/15/23 14:15 07/15/23 14:30 Temperature Pulse Rate 85 85 83 Pulse Rate [Left R adial] Pulse Rate [Pulse Oximeter] Respiratory Rate Blood Pressure Blood Pressure [Ri ght Arm] Blood Pressure [Ri ght Upper Arm] Pulse Oximetry 99 97 Oxygen Delivery Me thod 07/15/23 14:31 07/15/23 14:32 07/15/23 14:45 Temperature Pulse Rate 84 83 84 Pulse Rate [Left R adial] Pulse Rate [Pulse Oximeter] Respiratory Rate Blood Pressure 137/52 L Blood Pressure [Ri ght Arm] Blood Pressure [Ri ght Upper Arm] Pulse Oximetry 99 98 98 Oxygen Delivery Me thod 07/15/23 15:00 07/15/23 15:05 07/15/23 15:15 Temperature Pulse Rate 84 83 85 Pulse Rate [Left R adial] Pulse Rate [Pulse Oximeter] Respiratory Rate Blood Pressure Blood Pressure [Ri ght Arm] Blood Pressure [Ri ght Upper Arm] Pulse Oximetry 100 100 99 Oxygen Delivery Me thod 07/15/23 15:30 07/15/23 15:34 07/15/23 15:45 Temperature Pulse Rate 87 84 85 Pulse Rate [Left R adial] Pulse Rate [Pulse Oximeter] Respiratory Rate Blood Pressure Blood Pressure [Ri ght Arm] Blood Pressure [Ri ght Upper Arm] Pulse Oximetry 93 95 94 Oxygen Delivery Me thod 07/15/23 16:00 07/15/23 16:05 07/15/23 16:06 Temperature Pulse Rate 95 93 93 Pulse Rate [Left R adial] Pulse Rate [Pulse Oximeter] Respiratory Rate Blood Pressure Blood Pressure [Ri ght Arm] Blood Pressure [Ri ght Upper Arm] Pulse Oximetry 93 95 94 Oxygen Delivery Me thod 07/15/23 16:15 07/15/23 16:30 07/15/23 16:31 Temperature Pulse Rate 87 90 88 Pulse Rate [Left R adial] Pulse Rate [Pulse Oximeter] Respiratory Rate Blood Pressure 155/67 H Blood Pressure [Ri ght Arm] Blood Pressure [Ri ght Upper Arm] Pulse Oximetry 95 94 93 Oxygen Delivery Me thod 07/15/23 16:45 07/15/23 16:55 07/15/23 18:57 Temperature 99.6 F Pulse Rate 90 80 Pulse Rate [Left R adial] 89 Pulse Rate [Pulse Oximeter] Respiratory Rate 18 Blood Pressure Blood Pressure [Ri ght Arm] 153/64 H Blood Pressure [Ri ght Upper Arm] Pulse Oximetry 94 94 Oxygen Delivery Me thod Room Air 07/15/23 19:00 07/15/23 19:30 07/15/23 23:55 Temperature 98.2 F Pulse Rate 80 Pulse Rate [Left R adial] 83 Pulse Rate [Pulse Oximeter] Respiratory Rate 18 18 Blood Pressure Blood Pressure [Ri ght Arm] 116/51 L Blood Pressure [Ri ght Upper Arm] Pulse Oximetry 94 94 Oxygen Delivery Me thod Room Air Room Air 07/15/23 23:55 07/15/23 23:55 07/15/23 23:55 Temperature 99.2 F Pulse Rate Pulse Rate [Left R adial] Pulse Rate [Pulse Oximeter] 72 Respiratory Rate 18 18 18 Blood Pressure Blood Pressure [Ri ght Arm] 115/46 L Blood Pressure [Ri ght Upper Arm] Pulse Oximetry 92 94 Oxygen Delivery Me thod Room Air Room Air 07/16/23 02:30 07/16/23 08:27 07/16/23 08:27 Temperature 98.8 F 97.9 F Pulse Rate Pulse Rate [Left R adial] Pulse Rate [Pulse Oximeter] 73 72 72 Respiratory Rate 24 22 22 Blood Pressure Blood Pressure [Ri ght Arm] 113/47 L 116/54 L Blood Pressure [Ri ght Upper Arm] Pulse Oximetry 93 95 Oxygen Delivery Me thod Room Air Room Air 07/16/23 08:27 07/16/23 09:53 07/16/23 11:00 Temperature 98.3 F Pulse Rate 71 Pulse Rate [Left R adial] Pulse Rate [Pulse Oximeter] 64 Respiratory Rate 22 22 Blood Pressure Blood Pressure [Ri ght Arm] 105/45 L Blood Pressure [Ri ght Upper Arm] Pulse Oximetry 95 100 Oxygen Delivery Nc thod Room Air Room Air Labs Labs: Laboratory Results - last 24 hr 07/15/23 07/15/23 07/15/23 12:42 13:10 13:45 WBC 11.48 H RBC 3.83 L Hgb 11.4 L Hct 35.3 MCV 92 MCH 30 MCHC 32 RDW Coeff of [place] 12.7 Plt Count 214 Neut % (Auto) 83.0 H Lymph % (Auto) 10.7 L [place] % (Auto) 5.4 Eos % (Auto) 0.2 Baso % (Auto) 0.1 Neut # (Auto) 9.50 H Lymph # (Auto) 1.20 [place] # (Auto) 0.60 Eos # (Auto) 0.00 Baso # (Auto) 0.00 Abs Immat Gran (auto) 0.10 Imm/Tot Granulo (auto) 0.6 VBG pH 7.445 H VBG pCO2 30 L VBG pO2 50.3 H VBG HCO3 21 Sodium 140 Potassium 3.7 Chloride 105 Carbon Dioxide 18 L Anion Gap 17 H BUN 17 Creatinine 1.1 Estimated Creat Clear 34.13 Estimated GFR 50 Glucose 87 Lactate 2.1 H Calcium 9.1 Total Bilirubin 0.7 Direct Bilirubin 0.1 AST 40 H ALT 17 Alkaline Phosphatase 106 Troponin I 0.02 C-Reactive Protein 0.9 NT-Pro-B Natriuret Pep 1030 Total Protein 6.5 Albumin 3.9 Lipase Urine Color Urine Appearance Urine pH Ur Specific [place] Urine Protein Urine Glucose (UA) Urine Ketones Urine Blood Urine Nitrite Urine Bilirubin Urine Urobilinogen Ur Leukocyte Esterase Urine RBC Urine WBC Ur Squamous Epith Cells Urine Bacteria Acetaminophen < 10.0 L Ethyl Alcohol < 0.01 L SARS-CoV-2 (PCR) Negative SARS-CoV-2 Influenza Type A (PCR) Negative PCR FLU A Influenza Type B (PCR) Negative PCR FLU B POC Troponin I 0.05 H 07/15/23 07/15/23 07/15/23 14:57 19:08 Unknown WBC RBC Hgb Hct MCV MCH MCHC RDW Coeff of [place] Plt Count Neut % (Auto) Lymph % (Auto) [place] % (Auto) Eos % (Auto) Baso % (Auto) Neut # (Auto) Lymph # (Auto) [place] # (Auto) Eos # (Auto) Baso # (Auto) Abs Immat Gran (auto) Imm/Tot Granulo (auto) VBG pH VBG pCO2 VBG pO2 VBG HCO3 Sodium Potassium Chloride Carbon Dioxide Anion Gap BUN Creatinine Estimated Creat Clear Estimated GFR Glucose Lactate Calcium Total Bilirubin Direct Bilirubin AST ALT Alkaline Phosphatase Troponin I 0.10 H* 0.19 H* C-Reactive Protein NT-Pro-B Natriuret Pep Total Protein Albumin Lipase 172 Urine Color Yellow Urine Appearance Clear Urine pH 5.0 Ur Specific [place] 1.015 Urine Protein 1+ A Urine Glucose (UA) Negative Urine Ketones Negative Urine Blood 2+ A Urine Nitrite Positive A Urine Bilirubin Negative Urine Urobilinogen 0.2 Ur Leukocyte Esterase 1+ A Urine RBC 10-25 A Urine WBC 10-25 A Ur Squamous Epith Cells Few Urine Bacteria Few A Acetaminophen Ethyl Alcohol SARS-CoV-2 (PCR) Influenza Type A (PCR) Influenza Type B (PCR) POC Troponin I 07/16/23 07/16/23 07/16/23 00:45 06:03 08:22 WBC 19.10 H RBC 3.20 L Hgb 9.5 L Hct 29.4 L MCV 92 MCH 30 MCHC 32 RDW Coeff of [place] 13.3 Plt Count 184 Neut % (Auto) 83.6 H Lymph % (Auto) 9.1 L [place] % (Auto) 6.0 Eos % (Auto) 0.0 Baso % (Auto) 0.1 Neut # (Auto) 16.00 H Lymph # (Auto) 1.70 [place] # (Auto) 1.10 H Eos # (Auto) 0.00 Baso # (Auto) 0.00 Abs Immat Gran (auto) 0.20 Imm/Tot Granulo (auto) 1.2 VBG pH VBG pCO2 VBG pO2 VBG HCO3 Sodium 139 Potassium 3.1 L Chloride 105 Carbon Dioxide 20 Anion Gap 14 BUN 18 Creatinine 1.2 Estimated Creat Clear 31.18 Estimated GFR 45 Glucose 83 Lactate 0.8 Calcium 8.1 L Total Bilirubin 1.5 Direct Bilirubin AST 34 ALT 15 Alkaline Phosphatase 62 Troponin I 0.19 H* 0.13 H* C-Reactive Protein 7.7 H NT-Pro-B Natriuret Pep Total Protein 5.7 L Albumin 3.1 L Lipase Urine Color Urine Appearance Urine pH Ur Specific [place] Urine Protein Urine Glucose (UA) Urine Ketones Urine Blood Urine Nitrite Urine Bilirubin Urine Urobilinogen Ur Leukocyte Esterase Urine RBC Urine WBC Ur Squamous Epith Cells Urine Bacteria Acetaminophen Ethyl Alcohol SARS-CoV-2 (PCR) Influenza Type A (PCR) Influenza Type B (PCR) POC Troponin I
[2023-07-16] MEDS: ACETAMINOPHEN 325 MG TABLET 975 MG PO (15:09)
--- NOTE | 2023-07-16 16:30 | NUTR.NU ---
RDN with nutrition screen relted to new diagnosis of diverticulitis. RDN attempted to visit with patient multiple times, however patient not available on all attempts. RDN will attempt to visit with patient at later date.
--- NOTE | 2023-07-16 17:58 | PC.NURSE ---
End of Shift: Patient pleasant and cooperative. Patient vitally stable, lungs clear, BS WNL, IV SL. Patient denies pain or only reports some discomfort after eating. Patient SBA/walker. Patient has had 4 small-moderate loose/liquid stools, she especially has to defecate after eating, stool sample collected. Patient with little appetite ate half of breakfast and 25% of dinner. Patient febrile once 101.2, with tyleol fever resolved. Tele NSR and NSR w/ BBB. Patient otherwise napping on and off comfortably in bed.
[2023-07-16] MEDS: ATORVASTATIN CALCIUM 40 MG TABLET 80 MG PO (20:48)
[2023-07-16 21:26] LABS: C.Difficile Negative (Negative); CDIFFEPI 027 Presumptive Negative (Negative)
[2023-07-17] VITALS (10 sets, daily range): BP systolic 122–165; BP diastolic 52–79; PULSE 69–86; RESP 24–28; TEMP 36.9–37.5; O2SAT 28–98
[2023-07-17] MEDS: PIPERACILLIN/TAZOBACTAM 3.375 GM in 0.9 % SODIUM CHLORIDE Mini-bag 100 ML IVPB ×3 (05:21→17:48)
--- NOTE | 2023-07-17 06:06 | PC.NURSE ---
Addendum entered by Milly Tirado RN 07/17/23 06:38: Metoprolol held during shift for MAP = 68 , charge nurse notified. BP within normal limits Original Note: end of shift - Pt alert and cooperative during shift. Pt up to bathroom independently, and is continent of bowel and bladder. Pt denied pain during shift, afebrile, VSS. Pt daughter requested update from RN during shift. Report given via phone. Pt resting comfortably during shift.
[2023-07-17 07:26] LABS: Hematocrit 26.6 % (33.0-51.0); Hemoglobin* 8.4 gm/dL (12.0-16.0); Mean Corpuscular HGB Conc 32 gm/dL (32-36); Mean Corpuscular Hemoglobin 30 pg (26-34); Mean Corpuscular Volume 94 fL (80-100); Platelet Count* 157 K/uL (140-440); Red Blood Count 2.83 m/uL (4.00-5.20); White Blood Count* 15.09 K/uL (4.50-11.00)
[2023-07-17] MEDS: POTASSIUM CHLORIDE 10 MEQ CAPSULE ER 20 MEQ PO ×2 (08:05→17:49)
[2023-07-17 08:06] LABS: Slide Review Reflex No
[2023-07-17 08:13] LABS: Potassium* 3.7 mmol/L (3.6-5.1); Sodium* 138 mmol/L (135-149)
[2023-07-17 08:15] LABS: Creatinine* 1.2 mg/dL (0.5-1.5); Est. Creatinine Clearance* 31.68; Estimated Glomerular Filt Rate 45 ml/min
[2023-07-17 08:16] LABS: Carbon Dioxide* 17 mmol/L (20-32); Glucose* 55 mg/dL (60-115)
[2023-07-17 08:17] LABS: Magnesium* 1.8 mg/dL (1.5-2.6)
[2023-07-17 08:26] LABS: Anion Gap 9 mEq/L (7-15); Chloride* 112 mmol/L (96-114)
[2023-07-17 08:30] LABS: Blood Urea Nitrogen* 19 mg/dL (7-30); Calcium* 7.9 mg/dL (8.4-10.6)
[2023-07-17] MEDS: lisinopriL 20 MG TABLET 40 MG PO (08:57)
[2023-07-17] MEDS: METOPROLOL TARTRATE 25 MG TABLET PO ×2 (08:57→20:30)
[2023-07-17] MEDS: LOPERAMIDE HCL 2 MG CAPSULE PO (08:57)
[2023-07-17] MEDS: ASPIRIN 81 MG TABLET EC PO (08:57)
[2023-07-17] MEDS: CLOPIDOGREL 75 MG TABLET PO (08:57)
[2023-07-17] MEDS: SODIUM CHLORIDE 0.9 % (FLUSH) 10 ML SYRINGE 5 ML IVF (08:57)
[2023-07-17] MEDS: PANTOPRAZOLE SODIUM 40 MG INJ IVP (08:58)
--- NOTE | 2023-07-17 09:48 | P.IMPN_ITS ---
Progress Note: A&P Assessment and plan (1) Diverticulitis: Problem details: - CT showed diverticulitis on 07/15. She presented with mild leukocytosis which ginny initially, now improving - Tolerating diet, but concern with ongoing lower abd pain,will back off to NPO with IVF and repeat CT scan (discussed with gen surg). - On Zosyn (will continue), plan for PO antibiotics at discharge to complete a 10d course unless complications arise and longer course is needed - With dropping hgb, will watch Q8H and check fecal occult blood. Recommend transfusion if Hgb drops below 8 given recent cardiac issues - Monitor CBC Status: Acute (2) Anemia: Status: Acute Assessment and Plan: Suspect precipitous drop partially due to significant IVF, however, 3g drop in 48H concerning for potential GIB. Diverticular source would be likely. -Trend hgb Q8H -Check fecal occult blood -Recommend transfusion <8 due to recent cardiac issues. (3) UTI (urinary tract infection), bacterial: Problem details: - culture now growing E. coli resistant to amp, gent and bactrim. Sensitive to Zosyn (07/15), should be completely treated with diverticulitis treatment by 07/18 Status: Acute (4) Abnormal urinalysis: Problem details: see above Status: Acute (5) Elevated troponin: Problem details: - asymptomatic, was seen by [employer] [facility] in the clinic on day of admission - suspect Type II [place] from acute illness - follow to peak, 0.19 > 0.13 (07/16) - [facility] aware: recommends monitoring, serial troponins, TTE - JESSICA reassuring with normal global systolic function of RV and LV. Grade 1 pattern diastolic filling and mild/mod increased pulmonary pressure Status: Acute (6) Hypokalemia: Problem details: - Suspect due to PO intake and acute illness with diarrhea - potassium 3.1 on 07/17 - Improved with oral replacement with KCl 20 mEq b.i.d. x4 doses - continue to monitor Status: Acute (7) CKD (chronic kidney disease): Problem details: - creatinine 1.2, avoid nephrotoxic medications, continue to monitor Status: Acute (8) Essential hypertension: Problem details: - continue lisinopril and metoprolol, aspirin, monitoring - statin for hyperlipidemia comorbidity Status: Acute Time Spent With Patient Total time spent: Greater than 35 minutes spent on patient encounter with >50% spent on counseling patient Subjective Date Seen: 07/17/23 Interval history: Patient is a Marshallese-speaking only woman seen with iPAD dehorner at bedside this morning. She says she is feeling better, initially denying abdominal pain. Denies nausea. She has a small amount of ongoing diarrhea, but feels it has improved. She says her stools are black and green, but denies any melena or blood. Her Hgb has dropped quite a bit since admission (11.4 to 8.4), but she denies any lightheadedness, dizziness or chest pain. UA has also returned positive for E coli resistant to ampicillin, gentamycin and bactrim, but sensitive to Zosyn which she is receiving for her diverticulitis. EXAM: General- Well appearing, laying in bed HEENT: NCAT Resp: CTAB, breathing is unlabored CV: RRR, no m/g/r Abd: BS hyperactive, tender throughout, but worse in lower quadrants even to light palpation with voluntary guarding Neuro: Nonfocal, face is symmetric, no lateralizing deficits. Exam Const: Vital Signs, click to edit/add: Vital Signs - 24 hr 07/16/23 09:53 07/16/23 11:00 07/16/23 15:00 Temperature 98.3 F 101.2 F H Pulse Rate 71 Pulse Rate [Pulse Oximeter] 64 84 Respiratory Rate 22 28 H Blood Pressure [Ri ght Arm] 105/45 L 131/52 L Pulse Oximetry 100 94 Oxygen Delivery Me thod Room Air Room Air 07/16/23 15:00 07/16/23 15:00 07/16/23 15:09 Temperature 101.2 F H Pulse Rate Pulse Rate [Pulse Oximeter] 84 Respiratory Rate 28 H 28 H Blood Pressure [Ri ght Arm] Pulse Oximetry 94 Oxygen Delivery Me thod Room Air 07/16/23 15:37 07/16/23 16:43 07/16/23 19:00 Temperature 98.8 F 98.7 F Pulse Rate 87 Pulse Rate [Pulse Oximeter] 73 Respiratory Rate 22 Blood Pressure [Ri ght Arm] 107/49 L Pulse Oximetry 95 Oxygen Delivery Me thod Room Air 07/16/23 23:00 07/16/23 23:00 07/17/23 00:53 Temperature 98.5 F Pulse Rate 79 Pulse Rate [Pulse Oximeter] 78 Respiratory Rate 24 Blood Pressure [Ri ght Arm] 116/52 L Pulse Oximetry 93 93 Oxygen Delivery Me thod Room Air Room Air 07/17/23 02:53 07/17/23 07:00 07/17/23 07:00 Temperature Pulse Rate Pulse Rate [Pulse Oximeter] 76 86 Respiratory Rate 24 24 24 Blood Pressure [Ri ght Arm] 122/52 L Pulse Oximetry 93 94 Oxygen Delivery Me thod Room Air Room Air 07/17/23 07:55 Temperature 98.4 F Pulse Rate Pulse Rate [Pulse Oximeter] 86 Respiratory Rate 24 Blood Pressure [Ri ght Arm] 131/59 L Pulse Oximetry 94 Oxygen Delivery Me thod Room Air Labs Labs: Laboratory Results - last 24 hr 07/16/23 07/17/23 07/17/23 17:48 05:40 07:40 WBC 15.09 H RBC 2.83 L Hgb 8.4 L Hct 26.6 L MCV 94 MCH 30 MCHC 32 Plt Count 157 Sodium 138 Potassium 3.7 Chloride 112 Carbon Dioxide 17 L Anion Gap 9 BUN 19 Creatinine 1.2 Estimated Creat Clear 31.68 Estimated GFR 45 Glucose 55 L Calcium 7.9 L Magnesium 1.8 C-Reactive Protein 19.0 H Stl C. diff Tox B Gene Negative Stl C. diff [id number] Presumptive Negative Lab Acknowledgement Test Added
--- NOTE | 2023-07-17 10:06 | CRLHL7_ITS ---
For Patients: As a result of the Century Cures Act, medical imaging exams and procedure reports are released immediately into your electronic medical record. You may view this report before your referring provider. If you have questions, please contact your health care provider. Indication: Diverticulitis. DEC Hemoglobin Technique: CT Abdomen/Pelvis 61CC ISOVUE [address] Please note that all CT scans at this facility use dose modulation, iterative reconstruction, and/or weight-based dosing when appropriate to reduce radiation dose to as low as reasonably achievable. Comparison: 07.15.23 Findings: Small bilateral pleural effusions are present. Mild adjacent atelectasis in both lower lobes. No pericardial effusion. No intrahepatic mass. The gallbladder is absent. Spleen is intact. Normal pancreas. Adrenal glands normal. Small exophytic cyst left kidney. No hydronephrosis. Unremarkable right kidney. Atherosclerotic changes. No aneurysm. No adenopathy. Sigmoid diverticulosis. No bowel obstruction. Persistent extraluminal collection of phlegmonous material and extraluminal air within the right lower quadrant measuring up to approximately 2.7 cm. Percutaneous drainage not indicated at this time due to the difficult location of this collection. Degenerative disc disease L5-S1. Mild anterolisthesis of L4 on L5. No vertebral body compression fracture. Stable left adnexal cyst. Impression: Persistent inflammatory changes within the right lower quadrant with a collection of phlegmonous extraluminal fluid and air measuring 2.7 cm. This surrounds the terminal ileum and is located adjacent to the tip of the appendix. Surgical referral recommended. Please note that all CT scans at this facility use dose modulation, iterative reconstruction, and/or weight-based dosing when appropriate to reduce radiation dose to as low as reasonably achievable. Dictated by Benjamin Hickman MD @ 07/17/2023 11:10:38 AM (Electronically Signed)
[2023-07-17 10:19] LABS: Hemoglobin* 9.3 gm/dL (12.0-16.0)
[2023-07-17] MEDS: 0.9 % SODIUM CHLORIDE 1000 ml 1,000 ML 100 ML IV (11:00)
--- NOTE | 2023-07-17 11:39 | PM.GSCN ---
History of Present Illness Consult details Date Seen: 07/17/23 Consult date: 07/17/23 Narrative: Patient is an 82-year-old female male, who presented to the emergency department due to acute onset nausea, vomiting, diarrhea and abdominal pain. She initially was being seen by her inspectors and regulatory officers, due to a recent NSTEMI. Labs and EKG findings at that time were reassuring. She did have placement of drug-eluting stents in May. Currently she is maintained on aspirin and Plavix. Her abdominal surgical history is positive for a C-sect. She is unsure if she has ever had a colonoscopy. She continues to have lower bilateral abdominal pain, not getting better or worse since admission. She does get some relief when she has a bowel movement, last one today. Interview was done through video senior software engineer analytics and difficult secondary to patient being hard of hearing. Initial CT scan was concerning for possible diverticulitis. On my review no significant inflammation of the sigmoid colon, does have presence of diverticular disease. Reactive fluid of the pelvis and right lower quadrant with some enhancement of the small bowel in this area. While inpatient she has been having persistent pain and today shown an increase in her white blood cell count. She also has been having intermittent fevers. An interval CT scan was performed and demonstrated a developing abscess of the terminal ileum, the tip of the appendix is near this area with some associated inflammation. Review of Systems Status of ROS: Reports: other (unable to obtain, confusion and difficulty understanding video senior software engineer analytics.) [facility] Medical History (Updated 07/17/23 @ 12:06 by Marie Retana MD) Former smoker ?Z87.891 - Personal history of nicotine dependence (ICD-10) CKD (chronic kidney disease) ?N18.9 - Chronic kidney disease, unspecified (ICD-10) BPPV (benign paroxysmal positional vertigo) ?H81.10 - Benign paroxysmal vertigo, unspecified ear (ICD-10) Coronary artery disease ?I25.10 - Atherosclerotic heart disease of [place] coronary artery without angina pectoris (ICD-10) Essential hypertension ?I10 - Essential (primary) hypertension (ICD-10) GERD (gastroesophageal reflux disease) ?K21.9 - Gastro-esophageal reflux disease without esophagitis (ICD-10) Surgical History (Updated 07/15/23 @ 20:02 by Arely Villa MD) H/O craniotomy ?Z98.890 - Other specified postprocedural states (ICD-10) History of coronary artery stent placement ?Z95.5 - Presence of coronary angioplasty implant and graft (ICD-10) Social History (Updated 07/15/23 @ 20:02 by Arely Villa MD) Narrative: Patient lives in [place], but since her NSTEMI in May, she has been living with her daughter in [place] for cardiac rehab. She had 8 children, 6 living. Daughter Dana would be medical decision maker if needed. She smoked remotely, no alcohol use. Full code. What is your current living situation?: I presently have a place to live Problems where you live: unable to answer Problems where you live details: N/A In the past 12 months, utilities in danger of being shut off: unable to answer In past 12 months, lack of transportation kept you from medical appts, meetings, work, or getting things needed for daily living: no In the past 12 mos, have been you worried that your food would run out before you had money to buy more?: unable to answer In the past 12 mos, the food you bought just didn't last and you didn't have money to buy more?: unable to answer Highest level of school completed/degree received: never attended/kindergarten only Smoking Status: Former smoker Do you use any of these nicotine containing products: None How often do you have a drink containing alcohol: never How often do you have six or more drinks on one occasion: Never AUDIT-C Alcohol total score: 0 Non-prescribed substance use: denies use Caffeine: Yes (1 cup coffee daily) How often does anyone, including family, friends and others, physically hurt you: unable to answer How often does anyone, including family, friends and others, insult or talk down to you: unable to answer How often does anyone, including family, friends and others, threaten you with harm: unable to answer How often does anyone, including family, friends and others, scream or curse at you: unable to answer service: No Meds Home Medications and Allergies Home Medications Medication Instructions Recorded Confirmed Type aspirin 81 mg tablet,delayed 81 mg PO DAILY 07/15/23 07/15/23 History release (Robert Low Dose Aspirin) atorvastatin 80 mg tablet 80 mg PO HS 07/15/23 07/15/23 History clopidogrel 75 mg tablet 75 mg PO DAILY 07/15/23 07/15/23 History lisinopril 40 mg tablet 40 mg PO DAILY 07/15/23 07/15/23 History metoprolol tartrate 25 mg tablet 25 mg PO BID 07/15/23 07/15/23 History pantoprazole 40 mg tablet,delayed 40 mg PO DAILY 07/15/23 07/15/23 History release Allergies Allergy/AdvReac Type Severity Reaction Status Date / Time No Known Drug Allergies Allergy Verified 07/17/23 10:37 Exam Narrative: Exam Narrative: General: Alert but no acute distress. Nontoxic in appearance. Respiratory: Equal breath rise, maintained on room air CV: well perfused, no tachycardia. Hemodynamically stable with adequate pressures Abdomen: Mild distention, soft. Tender to palpation bilateral lower quadrants with some guarding and rebound. Well-healed midline surgical incision Const: Vital Signs, click to edit/add: Vital Signs - 24 hr 07/16/23 15:00 07/16/23 15:00 07/16/23 15:00 Temperature 101.2 F H Pulse Rate Pulse Rate [Pulse Oximeter] 84 84 Respiratory Rate 28 H 28 H 28 H Blood Pressure [Ri ght Arm] 131/52 L Pulse Oximetry 94 94 [facility] Room Air 07/16/23 15:09 07/16/23 15:37 07/16/23 16:43 Temperature 101.2 F H 98.8 F Pulse Rate 87 Pulse Rate [Pulse Oximeter] Respiratory Rate Blood Pressure [Ri ght Arm] Pulse Oximetry Oxygen Delivery Pa thod 07/16/23 19:00 07/16/23 23:00 07/16/23 23:00 Temperature 98.7 F 98.5 F Pulse Rate Pulse Rate [Pulse Oximeter] 73 78 Respiratory Rate 22 24 Blood Pressure [Ri ght Arm] 107/49 L 116/52 L Pulse Oximetry 95 93 93 [facility] Room Air Room Air 07/17/23 00:53 07/17/23 02:53 07/17/23 07:00 Temperature Pulse Rate 79 Pulse Rate [Pulse Oximeter] 76 86 Respiratory Rate 24 24 Blood Pressure [Ri ght Arm] 122/52 L Pulse Oximetry 93 [facility] 07/17/23 07:00 07/17/23 07:55 Temperature 98.4 F Pulse Rate Pulse Rate [Pulse Oximeter] 86 Respiratory Rate 24 24 Blood Pressure [Ri ght Arm] 131/59 L Pulse Oximetry 94 94 Oxygen Delivery Me thod Room Air Room Air Results Labs Labs: Abnormal lab results 07/17/23 07/17/23 Range/Units 05:40 10:14 WBC 15.09 H (4.50-11.00) K/uL RBC 2.83 L (4.00-5.20) m/uL Hgb 8.4 L 9.3 L (12.0-16.0) gm/dL Hct 26.6 L (33.0-51.0) % Carbon Dioxide 17 L (20-32) mmol/L Glucose 55 L (60-115) mg/dL Calcium 7.9 L (8.4-10.6) mg/dL C-Reactive Protein 19.0 H (0.5-1.0) mg/dL Diabetes panel 07/17/23 Range/Units 05:40 Sodium 138 (135-149) mmol/L Potassium 3.7 (3.6-5.1) mmol/L Chloride 112 (96-114) mmol/L Carbon Dioxide 17 L (20-32) mmol/L BUN 19 (7-30) mg/dL Creatinine 1.2 (0.5-1.5) mg/dL Glucose 55 L (60-115) mg/dL Calcium 7.9 L (8.4-10.6) mg/dL Calcium panel 07/17/23 Range/Units 05:40 Calcium 7.9 L (8.4-10.6) mg/dL Pituitary panel 07/17/23 Range/Units 05:40 Sodium 138 (135-149) mmol/L Potassium 3.7 (3.6-5.1) mmol/L Chloride 112 (96-114) mmol/L Carbon Dioxide 17 L (20-32) mmol/L BUN 19 (7-30) mg/dL Creatinine 1.2 (0.5-1.5) mg/dL Glucose 55 L (60-115) mg/dL Calcium 7.9 L (8.4-10.6) mg/dL Adrenal panel 07/17/23 Range/Units 05:40 Sodium 138 (135-149) mmol/L Potassium 3.7 (3.6-5.1) mmol/L Chloride 112 (96-114) mmol/L Carbon Dioxide 17 L (20-32) mmol/L BUN 19 (7-30) mg/dL Creatinine 1.2 (0.5-1.5) mg/dL Glucose 55 L (60-115) mg/dL Calcium 7.9 L (8.4-10.6) mg/dL All other labs normal. Imaging Abdomen CT scan report/results: report reviewed and image reviewed Assessment and Plan Assessment and plan (1) Intra-abdominal abscess: Status: Acute Plan Patient is an 82-year-old female who presents with persistent abdominal pain, increasing WBC and fevers. This is hospital day number 2 for the patient. Initial presentation prompted a CT scan with read by radiologist reporting colonic diverticulosis with focal inflammatory changes consistent with diverticulitis. On my view evidence of pelvic and right-sided intra-abdominal fluid with some reactive small bowel. She initially was treated with antibiotics and bowel rest by the hospitalist. They have been trending her WBC (11--19--15) and CRP (7.7--19). She did spike a temperature last night (101.2), afebrile this morning. She has remained hemodynamically stable. On my exam today she is very tender in bilateral lower quadrants with some guarding and rebound. An interval repeat CT scan was obtained, which shows persistent inflammatory changes within the right lower quadrant with now a collection of phlegmonous extraluminal fluid and air measuring 2.7 cm. This is surrounded by the terminal ileum, the tip of the appendix is adjacent. Appendix itself is mildly dilated but no significant inflammation. No evidence of diverticulitis of the sigmoid or ascending colon. Intra-abdominal abscess is most likely secondary to small bowel diverticulitis versus appendicitis. Patient is a very high surgical risk given her age, history of recent NSTEMI and anticoagulation use. At this time I am recommending switching her antibiotics to IV ertapenem, trending fever curve and inflammatory markers, patient to remain NPO. I did discuss with the patient that if her abdominal pain worsens, she continue to spike fevers, develops evidence of hemodynamic instability or demonstrates worsening inflammatory markers she may require going to the operating room. Would plan to start laparoscopic for diagnosis with possible laparoscopic appendectomy vs ileocecectomy and possible conversion to open procedure if needed.
[2023-07-17 12:34] LABS: Fecal Occult Blood* Positive (Negative)
[2023-07-17] MEDS: 5 % DEXTROSE/0.9% SOD CHLORIDE 1,000 ML 100 ML IV (17:10)
--- NOTE | 2023-07-17 18:06 | PC.NURSE ---
End of Shift: Patient pleasant and cooperative. Patient vitally stable, lungs, clear, BS WNL, IV running D5NS at 100. Patient SBA/walker. Patient reports discomfort but no pain. Patient has had multiple watery stools, last two bathroom uses were only urine when she usually has a mixture of urine and stool. Patient tolerated breakfast then was ordered NPO. Blood sugar 75,
[2023-07-17] MEDS: ONDANSETRON 2 MG/ML inj 4 MG IVP (18:32)
[2023-07-17] MEDS: ATORVASTATIN CALCIUM 40 MG TABLET 80 MG PO (20:30)
[2023-07-18] VITALS (7 sets, daily range): BP systolic 151–165; BP diastolic 58–69; PULSE 65–77; RESP 20–26; TEMP 36.4–37.5; O2SAT 92–97
[2023-07-18] MEDS: PIPERACILLIN/TAZOBACTAM 3.375 GM in 0.9 % SODIUM CHLORIDE Mini-bag 100 ML IVPB ×5 (00:05→23:28)
[2023-07-18] MEDS: 5 % DEXTROSE/0.9% SOD CHLORIDE 1,000 ML 100 ML IV (04:29)
[2023-07-18 06:38] LABS: Hematocrit 28.7 % (33.0-51.0); Hemoglobin* 9.2 gm/dL (12.0-16.0); Mean Corpuscular HGB Conc 32 gm/dL (32-36); Mean Corpuscular Hemoglobin 30 pg (26-34); Mean Corpuscular Volume 94 fL (80-100); Platelet Count* 164 K/uL (140-440); Red Blood Count 3.07 m/uL (4.00-5.20); White Blood Count* 11.76 K/uL (4.50-11.00)
[2023-07-18 06:43] LABS: Slide Review Reflex No
[2023-07-18 06:57] LABS: Chloride* 114 mmol/L (96-114)
[2023-07-18 06:58] LABS: Potassium* 3.7 mmol/L (3.6-5.1); Sodium* 139 mmol/L (135-149)
[2023-07-18 07:01] LABS: Anion Gap 8 mEq/L (7-15); Blood Urea Nitrogen* 11 mg/dL (7-30); Carbon Dioxide* 17 mmol/L (20-32); Creatinine* 0.9 mg/dL (0.5-1.5); Est. Creatinine Clearance* 38.02; Estimated Glomerular Filt Rate 63 ml/min; Glucose* 84 mg/dL (60-115)
--- NOTE | 2023-07-18 07:10 | PC.NURSE ---
end of shift - Pt cooperative and pleasant during shift. Up to bathroom with walker and gait belt. Pt had one instance of bladder incontinence during shift. Pt reported sleeping so good that she didn't wake up. Pt currently tolerating NPO status. VSS, afebrile. Observed to be sleeping during shift. Pt resting comfortably at end of shift.
[2023-07-18 08:02] LABS: C Reactive Protein* 17.7 mg/dL (0.5-1.0)
[2023-07-18] MEDS: LACTATED RINGERS 1000 ML 1,000 ML 75 ML IV (09:12)
--- NOTE | 2023-07-18 09:12 | PM.GSPN ---
Subjective Subjective Date Seen: 07/18/23 Interval history: Patient was interviewed with an in-person gear tooth lapping machine operator. She states that her pain is better today compared to yesterday. She has been able to get up and walk around. She does feel like eating, but reports a decrease in appetite. Had some nausea last night, controlled with Zofran. No nausea this morning. Continues to pass gas with a few episodes of diarrhea yesterday. Exam Narrative: Exam Narrative: General: Alert and oriented, no acute distress Respiratory: Equal breath rise bilaterally, maintained on room air CV: Well perfused Abdomen: Soft, nondistended. Nontender to palpation of the lower quadrants with no guarding or rebound this morning. Const: Vital Signs, click to edit/add: Vital Signs - 24 hr 07/17/23 12:20 07/17/23 12:29 07/17/23 16:00 Temperature 98.7 F 99.5 F Pulse Rate 83 Pulse Rate [Pulse Oximeter] 83 82 Respiratory Rate 24 28 H Blood Pressure [Ri ght Arm] 165/65 H 157/71 H Pulse Oximetry 98 28 L Oxygen Delivery Me thod Room Air Room Air 07/17/23 16:00 07/17/23 16:00 07/17/23 17:58 Temperature Pulse Rate 76 Pulse Rate [Pulse Oximeter] 82 Respiratory Rate 28 H 28 H Blood Pressure [Ri ght Arm] Pulse Oximetry 28 L Oxygen Delivery Dc thod Room Air 07/17/23 19:00 07/17/23 23:00 07/17/23 23:00 Temperature 98.7 F 99.0 F Pulse Rate 69 Pulse Rate [Pulse Oximeter] 72 69 Respiratory Rate 24 24 Blood Pressure [Ri ght Arm] 148/79 H 157/64 H Pulse Oximetry 95 93 Oxygen Delivery Me thod Room Air Room Air 07/17/23 23:00 07/18/23 03:00 07/18/23 07:33 Temperature 99.5 F 99 F Pulse Rate Pulse Rate [Pulse Oximeter] 65 73 Respiratory Rate 24 24 26 H Blood Pressure [Ri ght Arm] 159/66 H 152/62 H Pulse Oximetry 93 96 97 Oxygen Delivery Dc thod Room Air Room Air Room Air 07/18/23 07:33 07/18/23 07:33 07/18/23 07:33 Temperature Pulse Rate 69 Pulse Rate [Pulse Oximeter] 73 Respiratory Rate 26 H 26 H Blood Pressure [Ri ght Arm] Pulse Oximetry 97 Oxygen Delivery Me thod Room Air Labs/Imaging Labs Labs: WBC is trending down (15--11), CRP (19--17) Imaging Imaging: No new imaging this morning. Progress Note: A&P Assessment and plan (1) Intra-abdominal abscess: Status: Acute Assessment and Plan: Patient is an 82-year-old female hospitalized for an intra-abdominal abscess around the terminal ileum. Currently being managed with IV ertapenem. Patient has improvement in her pain with benign exam this morning. Afebrile overnight and down trending inflammatory markers. I did discuss with the patient that she is still at risk for needing to go to the operating room should she develop increasing pain, fevers, hemodynamic instability or associated small bowel obstruction/ileus. At this time will continue with medical management. -IV ertapenem -IV fluids, okay for clears. Will be very slow to advance diet -encourage ambulation Please call with any acute clinical changes, questions or concerns
[2023-07-18] MEDS: METOPROLOL TARTRATE 25 MG TABLET PO ×2 (09:13→20:11)
[2023-07-18] MEDS: CLOPIDOGREL 75 MG TABLET PO (09:13)
[2023-07-18] MEDS: lisinopriL 20 MG TABLET 40 MG PO (09:13)
[2023-07-18] MEDS: PANTOPRAZOLE SODIUM 40 MG INJ IVP (09:13)
[2023-07-18] MEDS: ASPIRIN 81 MG TABLET EC PO (09:13)
[2023-07-18] MEDS: SODIUM CHLORIDE 0.9 % (FLUSH) 10 ML SYRINGE 5 ML IVF (09:14)
--- NOTE | 2023-07-18 09:58 | PM.IMPN1 ---
Progress Note: A&P Assessment and plan (1) Diverticulitis: Status: Acute Assessment and Plan: Patient presented with fever and abdominal pain, mild leukocytosis. CT scan initially concerning for diverticulitis on 07/15. She was started on IV zosyn, but after 48H still had abdominal pain, fever and elevated inflammatory markers. A repeat CT scan was obtained 07/17 and was concerning for phlegmon at the terminal ileum raising concern for small bowel diverticulitis vs appendicitis. Surgery consult appreciated. Antibiotics switched to ertapenem. She is now afebrile with improvement in abdominal pain and leukocytosis. Patient will likely need longer course of IV antibiotics after discharge. - Advancing diet to clear liquids today, briefly discussed low residual diet at discharge for 2 weeks. Will be slowly advancing diet here - Continue ertapenem - Monitor CBC -Will need colonoscopy once infection resolves (2) Anemia: Status: Acute Assessment and Plan: Suspect precipitous drop partially due to significant IVF, however, 3g drop in 48H concerning for potential GIB. Diverticular source would be likely. FOBT is positive, but Hgb has stabilized. Suspect some mild bleeding from her active infection. -Trend hgb daily -Recommend transfusion <8 due to recent cardiac issues. -Will need colonoscopy in the future once acute issues resolve (3) UTI (urinary tract infection), bacterial: Problem details: - culture now growing E. coli resistant to amp, gent and bactrim. Sensitive to Zosyn (07/15), should be completely treated with diverticulitis treatment by 07/18 Status: Acute (4) Abnormal urinalysis: Problem details: see above Status: Acute (5) Elevated troponin: Problem details: - asymptomatic, was seen by [facility] Tying In Machine Operator in the clinic on day of admission - suspect Type II AK from acute illness - [facility], 0.19 > 0.13 (07/16) - [facility] aware: recommends monitoring, serial troponins, TTE - JESSICA reassuring with normal global systolic function of RV and LV. Grade 1 pattern diastolic filling and mild/mod increased pulmonary pressure Status: Acute (6) Hypokalemia: Problem details: - Suspect due to PO intake and acute illness with diarrhea - potassium 3.1 on 07/17 - Improved with oral replacement with KCl 20 mEq b.i.d. x4 doses - RESOLVED Status: Acute (7) CKD (chronic kidney disease): Problem details: - creatinine 1.2, avoid nephrotoxic medications, continue to monitor Status: Acute (8) Essential hypertension: Problem details: - continue lisinopril and metoprolol, aspirin, monitoring - statin for hyperlipidemia comorbidity Status: Acute Time Spent With Patient Total time spent: Greater than 35 minutes spent on patient encounter with >50% spent on counseling patient Subjective Date Seen: 07/18/23 Interval history: Patient is seen and examined with emergency specialist. She reports feeling better, with less abdominal pain. No nausea/vomiting. Remained afebrile overnight with improvement in leukocytosis. Still TTP in the right upper and lower quadrants, but no pain when at rest. EXAM: General- Well appearing, laying in bed HEENT: NCAT Resp: CTAB, breathing is unlabored CV: RRR, no m/g/r Abd: BS hypoactive, tender with guarding mostly right side, less so in LLQ. Neuro: Nonfocal, face is symmetric, no lateralizing deficits. Exam Const: Vital Signs, click to edit/add: Vital Signs - 24 hr 07/17/23 12:20 07/17/23 12:29 07/17/23 16:00 Temperature 98.7 F 99.5 F Pulse Rate 83 Pulse Rate [Pulse Oximeter] 83 82 Respiratory Rate 24 28 H Blood Pressure [Ri ght Arm] 165/65 H 157/71 H Pulse Oximetry 98 28 L Oxygen Delivery Al thod Room Air Room Air 07/17/23 16:00 07/17/23 16:00 07/17/23 17:58 Temperature Pulse Rate 76 Pulse Rate [Pulse Oximeter] 82 Respiratory Rate 28 H 28 H Blood Pressure [Ri ght Arm] Pulse Oximetry 28 L Oxygen Delivery Al thod Room Air 07/17/23 19:00 07/17/23 23:00 07/17/23 23:00 Temperature 98.7 F 99.0 F Pulse Rate 69 Pulse Rate [Pulse Oximeter] 72 69 Respiratory Rate 24 24 Blood Pressure [Ri ght Arm] 148/79 H 157/64 H Pulse Oximetry 95 93 Oxygen Delivery Al thod Room Air Room Air 07/17/23 23:00 07/18/23 03:00 07/18/23 07:33 Temperature 99.5 F 99 F Pulse Rate Pulse Rate [Pulse Oximeter] 65 73 Respiratory Rate 24 24 26 H Blood Pressure [Ri ght Arm] 159/66 H 152/62 H Pulse Oximetry 93 96 97 Oxygen Delivery Me thod Room Air Room Air Room Air 07/18/23 07:33 07/18/23 07:33 07/18/23 07:33 Temperature Pulse Rate 69 Pulse Rate [Pulse Oximeter] 73 Respiratory Rate 26 H 26 H Blood Pressure [Ri t Arm] Pulse Oximetry 97 Oxygen Delivery Me thod Room Air Labs Labs: Laboratory Results - last 24 hr 07/17/23 07/17/23 07/18/23 12:10 17:38 06:23 WBC 11.76 H RBC 3.07 L Hgb 9.0 L 9.2 L Hct 28.7 L MCV 94 MCH 30 MCHC 32 Plt Count 164 Sodium 139 Potassium 3.7 Chloride 114 Carbon Dioxide 17 L Anion Gap 8 BUN 11 Creatinine 0.9 Estimated Creat Clear 38.02 Estimated GFR 63 Glucose 84 Calcium 8.0 L C-Reactive Protein 17.7 H Stool Occult Blood Positive A Lab Acknowledgement 07/18/23 07:33 WBC RBC Hgb Hct MCV MCH MCHC Plt Count Sodium Potassium Chloride Carbon Dioxide Anion Gap BUN Creatinine Estimated Creat Clear Estimated GFR Glucose Calcium C-Reactive Protein Stool Occult Blood Lab Acknowledgement Test Added
[2023-07-18] MEDS: 0.9 % SODIUM CHLORIDE 250 ml IV (11:12)
--- NOTE | 2023-07-18 15:46 | PC.NURSE ---
End of Shift: Patient pleasant and cooperative. Patient vitally stable, lungs clear, BS WNL, IV running LR at 75. Patient denies pain but does have abdominal pain with palpation. Patient's blood sugars 85 and 79. Patient SBA/walker. Patient urinating but no BM today. Patient tolerating clear liquid diet, eating half a jello and two popsicles.
--- NOTE | 2023-07-18 18:42 | PC.NURSE ---
Nursing Care Hours: [id number] Pt this shift calm and cooperative, alert and oriented. SB ambulation with IV pole or walker. Pt did state she felt a little dizzy the last time she got up, gait remained steady. Advanced diet to full liquid. No c/o pain or N/V. VSS. Voiding but no BM, passing flatulence. Observed bilat legs with slight mottling of skin, otherwise CMS intact.
[2023-07-18] MEDS: ATORVASTATIN CALCIUM 40 MG TABLET 80 MG PO (20:11)
[2023-07-19 03:00] VITALS: BP 150/69; PULSE 77; RESP 24; TEMP 37.2; O2SAT 92
[2023-07-19] MEDS: LACTATED RINGERS 1000 ML 1,000 ML 75 ML IV (03:15)
[2023-07-19] MEDS: PIPERACILLIN/TAZOBACTAM 3.375 GM in 0.9 % SODIUM CHLORIDE Mini-bag 100 ML IVPB (05:55)
[2023-07-19 06:32] LABS: Hematocrit 28.7 % (33.0-51.0); Hemoglobin* 9.4 gm/dL (12.0-16.0); Mean Corpuscular HGB Conc 33 gm/dL (32-36); Mean Corpuscular Hemoglobin 30 pg (26-34); Mean Corpuscular Volume 92 fL (80-100); Platelet Count* 188 K/uL (140-440); Red Blood Count 3.12 m/uL (4.00-5.20); White Blood Count* 9.02 K/uL (4.50-11.00)
[2023-07-19 06:34] LABS: Slide Review Reflex No
[2023-07-19 06:53] LABS: Chloride* 112 mmol/L (96-114); Potassium* 3.5 mmol/L (3.6-5.1); Sodium* 137 mmol/L (135-149)
--- NOTE | 2023-07-19 07:10 | PC.NURSE ---
end of shift [id number] - Pt pleasant and cooperative. VSS, afebrile throughout night. Pt?had 1 incontinent void, remains continent of bowel.?Pt tolerating full liquid diet and denies nausea and?pain. Pt reports no pain or tenderness in abdomen at end of shift. Pt observed to sleep and appeared to be resting comfortably at end of shift.
[2023-07-19 07:43] VITALS: BP 161/69; PULSE 80; RESP 22; TEMP 36.9; O2SAT 95
[2023-07-19] MEDS: ASPIRIN 81 MG TABLET EC PO (08:35)
[2023-07-19] MEDS: METOPROLOL TARTRATE 25 MG TABLET PO (08:35)
[2023-07-19] MEDS: SODIUM CHLORIDE 0.9 % (FLUSH) 10 ML SYRINGE 5 ML IVF (08:35)
[2023-07-19] MEDS: CLOPIDOGREL 75 MG TABLET PO (08:35)
[2023-07-19] MEDS: PANTOPRAZOLE SODIUM 40 MG INJ IVP (08:35)
[2023-07-19] MEDS: lisinopriL 20 MG TABLET 40 MG PO (08:35)
--- NOTE | 2023-07-19 10:03 | PC.SOCIAL ---
Addendum entered by ORLIN Lanier 07/19/23 11:18: Spoke with dtr again and she is able to bring pt in for IV abx on Wednesday, Wednesday and around noon and attend a follow up with Dr. Retana on . Out-pt IV abx to be scheduled by nursing through the [facility]. Dtr plans to pick pt up at 3:00pm today. Cancelled inquiry with Kesha abdi as MD is ordering out-pt IV abx and not home IV abx. Original Note: Discharge planning: Called pt's dtr regarding discharge plan. Dtr is aware of need for IV antibiotics once a day for at least 3 more days. Dtr is aware of option to come to [facility] for out-pt infusion daily for 3 days. Dtr is requesting home care for IV antibiotic at home with [facility]. Per dtr, she has had this in the past and is aware of what she will need to do to assist with this at home and is willing to do that. Dtr would prefer home care to driving to [place]. Called [facility] [phone] and spoke with intake and provided information requested. Intake is forwarding information to benefits team to see if pt has coverage for home IV antibiotics and will call social worker health services back within 2 hours. animal control licensing worker to follow up as needed.
[2023-07-19] MEDS: 0.9 % SODIUM CHLORIDE 250 ml IV (10:40)
[2023-07-19 10:50] VITALS: BP 165/97; PULSE 69; RESP 20; TEMP 36.9; O2SAT 95
--- NOTE | 2023-07-19 10:55 | PM.GSPN ---
Subjective Subjective Date Seen: 07/19/23 Interval history: Patient is doing well this morning. Denies any abdominal pain, nausea or vomiting. Continues to pass gas. Is feeling hungry this morning for breakfast. No concerns. Exam Narrative: Exam Narrative: Gen: alert and oriented, NAD Abd: soft, non tender and non distended. Benign. Const: Vital Signs, click to edit/add: Vital Signs - 24 hr 07/18/23 11:15 07/18/23 15:00 07/18/23 15:00 Temperature 98.7 F Pulse Rate [Pulse Oximeter] 65 67 Respiratory Rate 26 H 24 24 Blood Pressure [Ri ght Arm] 165/69 H Pulse Oximetry 97 97 Oxygen Delivery Me thod Room Air Room Air 07/18/23 15:00 07/18/23 19:00 07/18/23 22:33 Temperature 98.4 F 99.3 F Pulse Rate [Pulse Oximeter] 67 73 Respiratory Rate 24 24 24 Blood Pressure [Ri ght Arm] 164/67 H 151/58 H Pulse Oximetry 97 96 96 Oxygen Delivery Me thod Room Air Room Air Room Air 07/18/23 23:00 07/19/23 03:00 07/19/23 07:43 Temperature 97.6 F 99.0 F 98.5 F Pulse Rate [Pulse Oximeter] 77 77 80 Respiratory Rate 20 24 22 Blood Pressure [Ri ght Arm] 153/67 H 150/69 H 161/69 H Pulse Oximetry 92 92 95 Oxygen Delivery Me thod Room Air Room Air Room Air 07/19/23 07:43 Temperature Pulse Rate [Pulse Oximeter] Respiratory Rate 22 Blood Pressure [Ri ght Arm] Pulse Oximetry 95 Oxygen Delivery Me thod Room Air Labs/Imaging Labs Labs: WBC (9) Progress Note: A&P Assessment and plan (1) Intra-abdominal abscess: Status: Acute Assessment and Plan: Patient is an 82-year-old female hospitalized for an intra-abdominal abscess around the terminal ileum. VSS, afebrile and benign exam this morning. Will advance diet to regular. Anticipate discharge later today. -IV ertapenem, recommend completing a 7 day course as an outpatient. Will follow up with her on in clinic to reassess . -low residue diet. -encourage ambulation Please call with any acute clinical changes, questions or concerns
--- NOTE | 2023-07-19 11:05 | NUTR.NU ---
RDN with nutrition education. RDN visited with patient (with Icelandic-skip pit worker in person) whom agreed to diet education related to low-residual diet. Patient admitted for diverticulitis and intra-abdominal abscess around the terminal ileum. MD recommends low-residual diet for 2 week post discharge. Plan for patient to discharge home with family today. Patient was provided diet education on a low fiber diet. Discussed foods to include and foods to avoid until MD recommends advancing to high fiber diet. Verbal and written information as well as sample menus provided on both diets from AND [facility].? Patient verbalized understanding.? RDN's contact information was provided and patient was encouraged to contact RDN with questions.
--- NOTE | 2023-07-19 11:33 | P.DS_ITS ---
DS: Providers Provider Date Seen: 07/19/23 Date of admission: 07/18/23 07:45 Primary care physician: Renetta Dunn MD Admitting Clinician: Arely Villa MD Consults: 07/17/23 11:19 Consult to Physician [CONS] Routine Comment: Consulting Provider: Marie Retana Has provider been notified: Yes Attending Physician on discharge: Arely Villa MD Date of Discharge: 07/19/23 DS: Diagnosis Discharge Diagnosis (1) Intra-abdominal abscess: Status: Acute Problem details: Patient initially admitted for presumed diverticulitis. She may have distal ileum small bowel diverticulitis with early abscess formation vs appendicitis. Was seen by general surgery and felt appropriate for conservative management. Patient improved with IV antibiotics and bowel rest. Initially treated with IV zosyn, but transitioned to IV ertapenem. She had 4d IV treatment in hospital with plan for at least 3 more days of IV treatment with ertapenem as outpatient. Plan is to see surgeon on last day of IV treatment to decide if she will need to continue IV abx vs transition to PO antibiotics at that time. Patient has clinically improved and feels comfortable discharging to home. Her associated leukocytosis and fevers have resolved and she is tolerating a full liquid diet. (2) Anemia: Status: Acute Problem details: Hgb on admission was 11.4. Dropped to 8.4 and noted to have positive guaiac, but hgb stabilized without procedural interventions. Improved to 9.4 prior to discharge. Recommend ongoing monitoring/management as outpatient. She is continued on ASA and plavix for recent NSTEMI (3) UTI (urinary tract infection), bacterial: Status: Acute Problem details: - Urine culture growing E. coli resistant to amp, gent and bactrim. Sensitive to Zosyn (07/15), should be completely treated with antibiotics given in hospital (4) CKD (chronic kidney disease): Status: Chronic Problem details: - creatinine 0.9 at discharge, avoid nephrotoxic medications, continue to monitor intermittently as outpatient (5) Essential hypertension: Status: Acute Problem details: - continue lisinopril and metoprolol, aspirin - statin for hyperlipidemia comorbidity - BP has been elevated in hospital and may require medication titration as outpatient (6) Hypokalemia: Status: Acute Problem details: - Suspect due to PO intake and acute illness with diarrhea - potassium 3.1 on 07/17 - Improved with oral replacement with KCl 20 mEq b.i.d. x4 doses - Mildly low at 3.5 on day of discharge, anticipate will improve with improvement in PO intake. Recommend monitoring at first follow up appointment (7) Elevated troponin: Status: Acute Problem details: - asymptomatic, was seen by [facility] Tender in the clinic on day of admission - suspect Type II MA from acute illness - [facility], 0.19 > 0.13 (07/16) - [facility] aware: recommended monitoring, serial troponins, TTE - JESSICA reassuring with normal global systolic function of RV and LV. Grade 1 pattern diastolic filling and mild/mod increased pulmonary pressure (8) Abnormal urinalysis: Status: Acute Problem details: see above DS: Summary Hospital Course Hospital Course: Patient admitted with acute onset of fever and abdominal pain. Leukocytosis and inflammatory changes at distal ileum with reactive fluid in pelvis on CT. She was admitted for management of diverticulitis. She initially worsened in the hospital despite IV zosyn with continued fevers and leukocytosis. Repeat CT scan commented on phlegmonous changes at the distal ileum. Patient was seen by general surgery and remained hospitalized with bowel rest, IVF and antibiotics. She ultimately improved with conservative management and was tolerating a full liquid diet prior to discharge. Plan is to complete 7 days of IV antibiotics with Ertapenem (3 more days after discharge arranged through infusion center) and then will be re-evaluated by Dr. Retana from surgery to determine if she will be appropriate to transition to PO antibiotics at that time. Patient was comfortable with the plan. See specific problems for further details above. Status at Discharge Functional status at discharge: independent ambulation Time Spent with Patient Time attestation: Total time spent providing and/or coordinating discharge services: Time spent: Greater than 30 minutes Exam Narrative: Exam Narrative: General: Well appearing, no distress HEENT: NCAT, MMM Resp: CTAB, breathing is unlabored CV: RRR, no m/g/r Abd: Nondistended, minimally tender to palpation in the RLQ Neuro: Nonfocal, no lateralizing deficits Const: Vital Signs, click to edit/add: Vital Signs - 24 hr 07/18/23 15:00 07/18/23 15:00 07/18/23 15:00 Temperature 98.4 F Pulse Rate [Pulse Oximeter] 67 67 Respiratory Rate 24 24 24 Blood Pressure [Ri ght Arm] 164/67 H Pulse Oximetry 97 97 Oxygen Delivery Me thod Room Air Room Air 07/18/23 19:00 07/18/23 22:33 07/18/23 23:00 Temperature 99.3 F 97.6 F Pulse Rate [Pulse Oximeter] 73 77 Respiratory Rate 24 24 20 Blood Pressure [Ri ght Arm] 151/58 H 153/67 H Pulse Oximetry 96 96 92 Oxygen Delivery Me thod Room Air Room Air Room Air 07/19/23 03:00 07/19/23 07:43 07/19/23 07:43 Temperature 99.0 F 98.5 F Pulse Rate [Pulse Oximeter] 77 80 Respiratory Rate 24 22 22 Blood Pressure [Ri ght Arm] 150/69 H 161/69 H Pulse Oximetry 92 95 95 Oxygen Delivery Me thod Room Air Room Air Room Air DS: Data Data Completed and Pending Labs on day of discharge: Labs from last 24 hours 07/19/23 06:21 WBC 9.02 RBC 3.12 L Hgb 9.4 L Hct 28.7 L MCV 92 MCH 30 MCHC 33 Plt Count 188 Sodium 137 Potassium 3.5 L Chloride 112 Carbon Dioxide Pending Anion Gap Pending BUN Pending Creatinine Pending Estimated GFR Pending Glucose Pending Calcium Pending Preliminary micro results at discharge 07/16/23 08:16 Blood Culture - Preliminary Blood NO GROWTH AFTER 72 HOURS 07/16/23 08:22 Blood Culture - Preliminary Blood NO GROWTH AFTER 72 HOURS Discharge Plan Discharge Disposition: Home, Self-Care Date of Admission: 07/18/23 07:45 Attending Provider on Discharge: Rosaura Durham Consulting Providers: Marie Retana Primary Care Provider: Renetta Dunn Condition: Stable Anticipated Discharge Date/Time: 07/19/23 11:20 Discharge Medications: Continued atorvastatin 80 mg tablet 80 mg PO HS clopidogrel 75 mg tablet 75 mg PO DAILY pantoprazole 40 mg tablet,delayed release (DR/EC) 40 mg PO DAILY lisinopril 40 mg tablet 40 mg PO DAILY metoprolol tartrate 25 mg tablet 25 mg PO BID aspirin [Robert Low Dose Aspirin] 81 mg tablet,delayed release (DR/EC) 81 mg PO DAILY Discharge Orders: Discharge Order (Routine); Ordered 07/19/23 Ordered By: Rosaura Durham Consulting provider completed their portion of the discharge: Yes Patient Education: Low Fiber Diet (DC) Additional Instructions: Take all antibiotics as prescribed. May want to try just a liquid diet for the remainder of the day to help with reduce chance of vomiting and worsening pain. Can slowly advance diet as tolerated. Return to the ER symptoms are getting worse over the next 2-3 days instead of better. Follow-up with primary care pr ovider in 10-14 days. Medications sent to [facility]. An appointment has been made for you to see Dr. Retana at the [facility] this 07/22/23. Activity Level: No strenuous activity Discharge Diet: Low Fiber Diet Detail: Low fiber diet for at least 2 weeks, longterm goal will be high fiber diet Follow Up Appointments: Marie Retana MD [Staff Physician] - ( [facility] 07/22) Renetta Dunn MD [Primary Care Provider] - Forms: CodeStreet Info Instructions
[2023-07-19] MEDS: ERTAPENEM 1 GM in 0.9 % SODIUM CHLORIDE Mini-bag 100 ML IVPB (13:40)
[2023-07-19 14:28] VITALS: BP 160/64; PULSE 80; RESP 20; TEMP 36.6; O2SAT 95
[2023-07-19 14:50] VITALS: RESP 20; O2SAT 95
[2023-07-19 15:27] LABS: Anion Gap 3 mEq/L (7-15); Blood Urea Nitrogen* 5 mg/dL (7-30); Calcium* 8.1 mg/dL (8.4-10.6); Carbon Dioxide* 22 mmol/L (20-32); Creatinine* 0.9 mg/dL (0.5-1.5); Est. Creatinine Clearance* 38.76; Estimated Glomerular Filt Rate 63 ml/min; Glucose* 77 mg/dL (60-115)
--- NOTE | 2023-07-19 17:23 | PC.NURSE ---
Pt alert and oriented. Pt had no complaints of pain. Pt SBA with gait belt. Pt needed a new IV placed before discharge for 3 days antibiotic outpatient therapy. Once IV placed today's antibiotic ran. IV secured and covered with tubi boat motor mechanic. Pt to discharge home with daughter. Discharge instructions done with Pt and daughter. Pt to come to [facility] tomorrow for outpatient antibiotics.?
== END 2023-07-19 17:10 | disposition home or self-care (01) | DRG 377 ==
LOC: ED 16:44 → MEDSURG 16:57
PROVIDERS: Family Medicine; Physician Assistant; Admitting Provider Family Medicine; Emergency Provider Family Medicine; PCP Internal Medicine; Visit Provider Family Medicine
DX: K57.01 Diverticulitis of small intestine with perforation and abscess with bleeding (principal); I21.A1 Myocardial infarction type 2; K65.1 Peritoneal abscess; D62 Acute posthemorrhagic anemia; N39.0 Urinary tract infection, site not specified; B96.20 Unspecified Escherichia coli [E. coli] as the cause of diseases classified elsewhere; I12.9 Hypertensive chronic kidney disease with stage 1 through stage 4 chronic kidney disease, or unspecified chronic kidney disease; K21.9 Gastro-esophageal reflux disease without esophagitis; R19.5 Other fecal abnormalities; Z87.891 Personal history of nicotine dependence; I25.10 Atherosclerotic heart disease of native coronary artery without angina pectoris; E78.5 Hyperlipidemia, unspecified; Z95.5 Presence of coronary angioplasty implant and graft; Z48.811 Encounter for surgical aftercare following surgery on the nervous system
CPT/HCPCS: 36415; 70450; 74177; 80048; 80053; 80076; 80143; 81001; 82077; 82270; 82803; 82962; 83605; 83690; 83735; 83880; 84484; 85018; 85025; 85027; 86140; 87040; 87086; 87186; 87493; 87631; 93005; 93306; 94761; 99285; G0378; T1013; A9270; C9113; J1335; J2405; J2543; J7030; J7042; J7050; J7120; Q9967

== ENCOUNTER 2023-07-22 10:30 | Outpatient (RCR) | payer MEDICARE, MEDICAID, OTHER, SELFPAY ==
[2023-07-20 10:07] VITALS: BP 121/75; PULSE 96; RESP 17; TEMP 36.6; O2SAT 95
[2023-07-20] MEDS: ERTAPENEM 1 GM in 0.9 % SODIUM CHLORIDE Mini-bag 100 ML IVPB (10:24)
--- NOTE | 2023-07-20 13:19 | ONC.NURNOTE ---
maci Barberrat farmer present for assessment, in the future, pt would like daughter to dry roller. Pattern Drum Maker waiver form placed in chart for pt to sign on 07/21/23.
[2023-07-21 10:29] VITALS: BP 122/65; PULSE 80; RESP 17; TEMP 36.8; O2SAT 92
[2023-07-21] MEDS: SODIUM CHLORIDE 0.9 % (FLUSH) 10 ML SYRINGE IVF (10:45)
[2023-07-21] MEDS: 0.9 % SODIUM CHLORIDE 250 ml IV (10:45)
[2023-07-21] MEDS: ERTAPENEM 1 GM in 0.9 % SODIUM CHLORIDE Mini-bag 100 ML IVPB (10:50)
--- NOTE | 2023-07-21 12:38 | ONC.NURNOTE ---
Pt here for Ertapenem. Upon assessment, pt denied loose stools. During infusion, pt did have a large loose stool. Encouraged pt to start probiotic or yogurt. Pt also c/o dry lips, slightly itchy. No rash present, pt states this was present during hospitalization. Encouraged pt to use lip moisturizer and to notify primary care if symptoms worsen. Pt and her daughter verbalized understanding.
[2023-07-22 11:20] VITALS: BP 163/69; PULSE 76; RESP 17; TEMP 37.2; O2SAT 96
[2023-07-22] MEDS: SODIUM CHLORIDE 0.9 % (FLUSH) 10 ML SYRINGE IVF (11:40)
[2023-07-22] MEDS: ERTAPENEM 1 GM in 0.9 % SODIUM CHLORIDE Mini-bag 100 ML IVPB (11:40)
[2023-07-22] MEDS: 0.9 % SODIUM CHLORIDE 250 ml IV (11:40)
== END 2024-01-16 23:59 | disposition home or self-care (01) ==
LOC: CCIC 10:30
PROVIDERS: PCP Internal Medicine; Referring Provider Internal Medicine; Visit Provider Clinical Nurse Specialist
DX: K65.1 Peritoneal abscess (principal)
CPT/HCPCS: 96365; J1335; J7050